=== PATIENT | male | born 1950 | race Caucasian/White ===

== ENCOUNTER 2017-01-26 18:22 | Inpatient (IN) | payer MEDICARE, OTHER ==
[2017-01-26 18:22] VITALS: BMI 35.4
[2017-01-26] MEDS ORDERED: Pantoprazole 80 MG in Sodium Chloride 0.9% 100 ML IV STA (19:01)
--- NOTE | 2017-01-26 19:18 | C.PDOC ---
History Of Present Illness A 66 year old male with a hx of arthritis and hemorrhoids, presents to the ED c/ o grossly bloody diarrhea and a near syncopal episode that occurred today. Patient notes that he has been treated by his PMD with Voltaren 75 mg for his knee pain. Patient then reports that today his "stomach was rumbling and crampy " and thought he was going to have diarrhea. When he passed his stool he noticed it to be grossly bloody. Patient then reports when he got up he felt lightheaded and had a near syncopal episode, fell, and hit his head on a cabinet. Patient denies nausea, vomiting, fever, chills, headaches, or any other complaints. Time Seen by Provider: 01/26/17 18:43 Chief Complaint (Nursing): GI Problem History Per: Patient History/Exam Limitations: no limitations Onset/Duration Of Symptoms: Hrs Current Symptoms Are (Timing): Still Present Amount of Blood Loss: Medium (Grossly bloody) Severity: Mild Associated Symptoms: Diarrhea. denies: Nausea, Vomiting Recent travel outside of the [place]: No Additional History Per: Patient Past Medical History Reviewed: Historical Data, Nursing Documentation, Vital Signs Vital Signs: Last Vital Signs Temp 97.8 F 01/26/17 18:40 Pulse 81 01/26/17 18:40 Resp 18 01/26/17 18:40 BP 99/58 L 01/26/17 18:40 Pulse Ox 99 01/26/17 20:28 - Medical History PMH: Anemia, Arthritis (Timoteo Knee), Asthma, Colonic Polyps, Diabetes, Diverticulitis (discharged 06/13/14 on antibiotics), Gastritis, HTN, Hypercholesterolemia Denies: Chronic Kidney Disease Surgical History: Endoscopy - [facility] Procedures COLONOSCOPY (06/17/14) Family History: States: Unknown Family Hx - Social History Hx Tobacco Use: No Hx Alcohol Use: No Hx Substance Use: No - Immunization History Hx Tetanus Toxoid Vaccination: No Hx Influenza Vaccination: No Hx Pneumococcal Vaccination: No Review Of Systems Except As Marked, All Systems Reviewed And Found Negative. Constitutional: Negative for: Fever, Chills Gastrointestinal: Positive for: Diarrhea. Negative for: Nausea, Vomiting Skin: Positive for: Other (Laceration on head) Neurological: Positive for: Other (Near syncopal episode). Negative for: Headache Physical Exam - Physical Exam Appears: Non-toxic, No Acute Distress Skin: Warm, Dry Head: No Tenderness, Laceration (On the top of the head) Eye(s): bilateral: Conjunctiva Pale Cardiovascular: Rhythm Regular, No Murmur Respiratory: Normal Breath Sounds, No Rales, No Rhonchi, No Wheezing Gastrointestinal/Abdominal: Soft, No Tenderness Rectal: Heme Positive (Grossly bloody around the rectal vault), No Hemorrhoids Neurological/Psych: Oriented x3, Normal Speech, Normal Cognition Gait: Steady (Ambulatory) ED Course And Treatment - Laboratory Results Result Diagrams: 01/26/17 19:28 01/26/17 19:28 Lab Interpretation: No Acute Changes ECG: Interpreted By Me ECG Rhythm: Sinus Rhythm ECG Interpretation: Normal O2 Sat by Pulse Oximetry: 99 (Room air) Pulse Ox Interpretation: Normal Reevaluation Time: 20:31 Reassessment Condition: Unchanged (Patient remains comfort able but BP 92/50. No evidence of tachycardia) - Physician Consult Information Time Consulting Physician Contacted: 20:35 Physician Contacted: Sarbjit Calhoun Outcome Of Conversation: Patient to be admitted for GI hemorrhage with syncope Procedure: Wound Repair - Time Performed Time Performed: 20:27 - Performed by Performed by: Attending Physician - Indications Indication(s):: Laceration - Location Location:: Scalp Shape:: Linear Depth:: Epidermis - Debris Debris:: None - Wound repair method Larry:: Tissue glue - Patient tolerated procedure Patient Tolerated Procedure:: Well Medical Decision Making Medical Decision Making: Plans: -IV fluids -Blood work -Pepcid -EKG -Reassess and disposition Disposition - Disposition Disposition: HOSPITALIZED Disposition Time: 20:36 Condition: GUARDED - POA Present On Arrival: Falls Or Trauma - Clinical Impression Clinical Impression: Gastrointestinal hemorrhage, Bright red blood per rectum, Syncope, Hypotension - Scribe Statement The provider has reviewed the documentation as recorded by the Scribe Lore kilgore All medical record entries made by the Scribe were at my direction and personally dictated by me. I have reviewed the chart and agree that the record accurately reflects my personal performance of the history, physical exam, medical decision making, and the department course for this patient. I have also personally directed, reviewed, and agree with the discharge instructions and disposition.
[2017-01-26 19:42] LABS: BASO % 0.4 % (0.0-2.0); EOS # 0.1 K/uL (0.0-0.7); EOS % 1.5 % (0.0-4.0); HEMATOCRIT 35.2 % (35.0-51.0); LYMPH # 0.6 K/uL (1.0-4.3); LYMPH % 7.8 % (20.0-40.0); MEAN CORPUSCULAR HEMOGLOBIN 23.4 pg (27.0-31.0); MEAN CORPUSCULAR HGB CONC 31.1 g/dL (33.0-37.0); MEAN PLATELET VOLUME 9.3 fL (7.2-11.7); MONO # 0.4 K/uL (0.0-0.8); MONO % 5.9 % (0.0-10.0); NRBC % 0.1 % (0.0-2.0); PLATELET COUNT 179 K/uL (130-400); WHITE BLOOD COUNT 7.3 K/uL (4.8-10.8)
[2017-01-26 19:43] LABS: CHLORIDE 104 mmol/L (98-107)
[2017-01-26 19:44] LABS: MEAN CELL VOLUME 75.4 fL (80.0-94.0); POTASSIUM 3.4 mmol/L (3.6-5.2); SODIUM 142 mmol/L (132-148)
[2017-01-26 19:46] LABS: ALB/GLOB RATIO 1.4 (1.0-2.1); ALKALINE PHOSPHATASE 44 U/L (38-126); AST/SGOT 32 U/L (17-59); BILIRUBIN,TOTAL 0.6 mg/dL (0.2-1.3); CARBON DIOXIDE 27 mmol/L (22-30); GFR AFRICAN-AMERICAN > 60; INR 1.1; TOTAL PROTEIN 6.1 g/dL (6.3-8.3)
[2017-01-26 19:47] LABS: ALT/SGPT 33 U/L (21-72); BLOOD UREA NITROGEN 19 mg/dL (9-20); CALCIUM 8.4 mg/dl (8.6-10.4); GLUCOSE,RANDOM 166 mg/dL (75-110)
[2017-01-26 20:18] LABS: NEUTROPHIL 89 % (50-75); TOTAL CELLS COUNTED 100
[2017-01-26 20:19] LABS: LARGE PLATELETS PRESENT
[2017-01-26] MEDS ORDERED: Sodium Chloride 0.9% 1,000 ML IV ONE (20:30)
--- NOTE | 2017-01-26 20:55 | CP.PCM.HP ---
Addendum entered and electronically signed by Randy Boogie DO 01/27/17 02:21: -CT Abd/Pelvis w/o contrast - 1. Bladder findings which could be due to mild cystitis. Otherwise within normal limits in appearance. 2. Extensive colonic diverticulosis without definite diverticulitis (artifacts from arm movement). -f/u UA Original Note: <Randy Boogie - Last Filed: 01/27/17 00:20> History of Present Illness - History of Present Illness History of Present Illness: CC: Diarrhea with bright red blood HPI: 66yo Male with PMHx significant for diverticulitis, internal-hemorrhoids, and HTN - presents c/o a single episode of bloody diarrhea and a near syncopal episode earlier today. Patient reports eating a typical lunch of grilled chicken , plantains, 2 eggs, and coffee. Shortly after, he developed cramping abdominal discomfort for several hours, which culminated in an episode of diarrhea at 4: 30pm. He describes the diarrhea as bloody (bright red), coating both the small pieces of stool and the toilet bowl, with black clots present. Upon standing, he reports feeling lightheaded, had a near syncopal episode, fell, and hit his head on a cabinet. He denies LOC, change in vision, headache, f/c, chest pain, SOB, n/v, or any additional complaints. He admits to similar episodes of BRBPR with clots in 2013. PMHx: HTN, DM2, colonic polyps, diverticulitis, internal-hemorrhoids, hyperlipidemia, arthritis (knee pain). PSHx: Colonoscopy 11/2015 (diverticulosis, non-bleeding internal hemorhoids, rec repeat in 10yrs), Cataracts Meds: Glimepiride 4mg PO qd; Singulair 10mg PO qd; Diclofenac 74mg PO BID; Pravastatin 20mg PO HS; Verapamil 240mg PO qd; Alendronate 35mg PO qd; Protonic 40mg PO qd. Allergies: NKDA FamHx: Mother DM; Father of [place] SocHx: Denies Tobacco, ETOH, or illicit drugs; Lives in apartment alone; Unemployed PMD: Pravin Pepe Present on Admission - Present on Admission Any Indicators Present on Admission: No Review of Systems - Review of Systems Review of Systems: - Constitutional Constitutional: absent: Fever, Chills, Weakness - EENT Eyes: UNREMARKABLE absent: Change in vision. Ears: Dizziness Nose/Mouth/Throat: UNREMARKABLE - Cardiovascular Cardiovascular: absent: Chest Pain, Chest Pain at Rest, Dyspnea, Diaphoresis - Respiratory Respiratory: absent: Cough, Dyspnea - Gastrointestinal Gastrointestinal: Abdominal Pain (5/5 LLQ), Change in Bowel Habits, Change in Stool Character, Diarrhea, Hematochezia. absent: Hematemesis, Nausea, Vomiting - Genitourinary Genitourinary: absent: Dysuria, Hematuria - Musculoskeletal Musculoskeletal: UNREMARKABLE - Integumentary Integumentary: UNREMARKABLE - Neurological Neurological: Syncope, Alert, Oriented x3 -Denies change in vision Past Patient History - Infectious Disease Hx of Infectious Diseases: None - Tetanus Immunizations Tetanus Immunization: Unknown - Past Medical History & Family History Past Medical History?: Yes - Past Social History Smoking Status: Never Smoked - CARDIAC Hx Hypercholesterolemia: Yes Hx Hypertension: Yes - PULMONARY Hx Asthma: Yes - NEUROLOGICAL Hx Neurological Disorder: Yes Hx Dizziness: Yes (06/11/14) - HEENT Hx HEENT Problems: Yes Hx Cataracts: Yes (L Cataract Surgery 15 Yrs Ago) - RENAL Hx Chronic Kidney Disease: No - ENDOCRINE/METABOLIC Hx Endocrine Disorders: Yes Hx Diabetes Mellitus Type 2: Yes - HEMATOLOGICAL/ONCOLOGICAL Hx Anemia: Yes - INTEGUMENTARY Hx Dermatological Problems: No - MUSCULOSKELETAL/RHEUMATOLOGICAL Hx Arthritis: Yes (Timoteo Knee) - GASTROINTESTINAL Hx Diverticulitis: Yes (discharged 06/13/14 on antibiotics) Hx Gastritis: Yes - GENITOURINARY/GYNECOLOGICAL Hx Genitourinary Disorders: No - PSYCHIATRIC Hx Substance Use: No - SURGICAL HISTORY Hx Surgeries: Yes Hx Eye Surgery: Yes (CATARACTS SX) Other/Comment: Colonoscopy/Endoscopy By ,left cataract surgery - ANESTHESIA Hx Anesthesia: Yes Hx Anesthesia Reactions: No Hx Malignant Hyperthermia: No Meds Allergies/Adverse Reactions: Allergies Allergy/AdvReac Type Severity Reaction Status Date / Time No Known Allergies Allergy Verified 01/26/17 18:44 Physical Exam - Additional Findings Additional findings: - Constitutional Appears: No Acute Distress - Head Exam Head Exam: absent: Atraumatic (right posterior scalp laceration, sealed with epoxy). - Eye Exam Eye Exam: Normal appearance - ENT Exam ENT Exam: Mucous Membranes Moist - Respiratory Exam Respiratory Exam: CTA. absent: Rales, Rhonchi, Wheezes - Cardiovascular Exam Cardiovascular Exam: REGULAR RHYTHM, +S1, +S2 - GI/Abdominal Exam GI & Abdominal Exam: Normal Bowel Sounds, Soft. Tenderness (moderate LLQ) absent: Distended, Guarding, Rebound Additional comments: -obese abdomen -blood around rectal vault. No external hemorrhoids appreciated. - Extremities Exam Extremities exam: absent: pedal edema - Neurological Exam Neurological exam: Alert, Oriented x3 - Psychiatric Exam Psychiatric exam: Normal Affect, Normal Mood Results - Vital Signs Recent Vital Signs: Last Vital Signs Temp 97.8 F 01/26/17 18:40 Pulse 81 01/26/17 18:40 Resp 18 01/26/17 18:40 BP 99/58 L 01/26/17 18:40 Pulse Ox 99 01/26/17 20:37 - Labs Result Diagrams: 01/26/17 19:28 01/26/17 19:28 Labs: Laboratory Results - last 24 hr 01/26/17 01/26/17 01/26/17 19:15 19:28 19:28 WBC 7.3 RBC 4.67 Hgb 11.0 L Hct 35.2 MCV 75.4 L D MCH 23.4 L MCHC 31.1 L RDW 15.0 H Plt Count 179 MPV 9.3 Neut % (Auto) 84.4 H Lymph % (Auto) 7.8 L [place] % (Auto) 5.9 Eos % (Auto) 1.5 Baso % (Auto) 0.4 Neut # 6.2 Lymph # 0.6 L [place] # 0.4 Eos # 0.1 Baso # 0.0 Neutrophils % (Manual) 89 H Lymphocytes % (Manual) 7 L Monocytes % (Manual) 4 Platelet Estimate Normal Large Platelets Present Hypochromasia (manual) Slight Poikilocytosis (manual Slight Anisocytosis (manual) Slight Microcytosis (manual) Slight Tear Drop Cells Slight Ovalocytes Slight PT 12.8 H INR 1.1 APTT 25 Sodium Potassium Chloride Carbon Dioxide Anion Gap BUN Creatinine Est GFR ( Amer) Est GFR (Non-Af Amer) Random Glucose Calcium Total Bilirubin AST ALT Alkaline Phosphatase Total Protein Albumin Globulin Albumin/Globulin Ratio Stool Occult Blood Positive H Blood Type 01/26/17 01/26/17 19:28 19:28 WBC RBC Hgb Hct MCV MCH MCHC RDW Plt Count MPV Neut % (Auto) Lymph % (Auto) [place] % (Auto) Eos % (Auto) Baso % (Auto) Neut # Lymph # [place] # Eos # Baso # Neutrophils % (Manual) Lymphocytes % (Manual) Monocytes % (Manual) Platelet Estimate Large Platelets Hypochromasia (manual) Poikilocytosis (manual Anisocytosis (manual) Microcytosis (manual) Tear Drop Cells Ovalocytes PT INR APTT Sodium 142 Potassium 3.4 L Chloride 104 Carbon Dioxide 27 Anion Gap 14 BUN 19 Creatinine 0.6 L Est GFR ( Amer) > 60 Est GFR (Non-Af Amer) > 60 Random Glucose 166 H Calcium 8.4 L Total Bilirubin 0.6 AST 32 ALT 33 Alkaline Phosphatase 44 Total Protein 6.1 L Albumin 3.5 Globulin 2.5 Albumin/Globulin Ratio 1.4 Stool Occult Blood Blood Type A POSITIVE Assessment & Plan - Assessment and Plan (Free Text) Assessment: Gastrointestinal hemorrhage -BRBPR during 1 diarrheal episode prior to admission. - Hgb 11; Hct 35.2; MCV 75L -Type and cross 2 units -Consult GI, Dr. Varela, f/u recs -> possible endoscopy / colonoscopy in AM -Pantoprazol 80mg IV (in ED). -Protonix drip at 8cc/hr -Stool occult (+) Anemia - Hgb 11; Hct 35.2; MCV 75L -Type and cross 2 units -Vitals: Stable -F/U cbc in am -Stool occult (+) -f/u Fe, TIBC, %Sat, reticulocyte count, folate, B12 Hx Diverticulitis -Consult GI, Dr. Varela, f/u recs -> possible endoscopy / colonoscopy in AM -WBC 7.3 Scalp Laceration - at posterior/right scalp -> closed with dermabond in ED. -CT head w/o contrast - NEGATIVE. Normal CT of the brain. Other findings: 1. Focal area of the sclerosis and cystic change of the left sphenoid bone at the level of the floor the middle cranial fossa. Fibrous dysplasia is among the diagnostic considerations. MRI might be helpful. 2. Mucosal thickening in the ethmoid air cells bilaterally. Hypertension - BP 99/58 on admission - Hold Verapamil 240mg PO qd - NS0.9 at 80cc/hr Diabetes mellitus -Accuchecks -RISS -HOLD Glimepiride 4mg PO qd -f/u A1c (6.1 in 2014) Hyperlipidemia -Crestor 5 mg PO QHS -f/u FLP Arthritis - b/l knee pain - HOLD Diclofenac 74mg PO BID Hx Asthma - asymptomatic - Singulair 10mg PO qd - consider Duonebs if needed. Prophylactic measure -Protonix drip at 8cc/hr -Hold anticoagulation due to bleed -SCDs - Date & Time Date: 01/26/17 Time: 21:20 <Sarbjit Calhoun - Last Filed: 01/27/17 06:31> Results - Vital Signs Recent Vital Signs: Last Vital Signs Temp 97.8 F 01/26/17 18:40 Pulse 59 L 01/27/17 05:55 Resp 13 01/27/17 05:55 BP 125/74 01/27/17 05:55 Pulse Ox 100 01/27/17 05:55 - Labs Result Diagrams: 01/27/17 05:57 01/27/17 05:57 Labs: Laboratory Results - last 24 hr 01/27/17 01/27/17 01/27/17 00:18 05:57 05:57 WBC 5.6 5.0 RBC 4.31 L 3.82 L Hgb 10.1 L 8.7 L Hct 31.7 L 28.1 L MCV 73.6 L 73.6 L MCH 23.4 L 22.8 L MCHC 31.9 L 31.0 L RDW 15.2 H 15.1 H Plt Count 158 151 MPV 9.2 9.2 Neut % (Auto) 77.3 H 72.4 Lymph % (Auto) 13.0 L 15.0 L [place] % (Auto) 8.4 9.7 Eos % (Auto) 0.7 2.2 Baso % (Auto) 0.6 0.7 Neut # 4.4 3.6 Lymph # 0.7 L 0.7 L [place] # 0.5 0.5 Eos # 0.0 0.1 Baso # 0.0 0.0 Retic Count Sodium 142 Potassium 3.7 Chloride 107 Carbon Dioxide 27 Anion Gap 12 BUN 12 Creatinine 0.5 L Est GFR ( Amer) > 60 Est GFR (Non-Af Amer) > 60 Random Glucose 75 Calcium 7.9 L Phosphorus 2.1 L Magnesium 2.0 Total Bilirubin 0.6 AST 27 ALT 30 Alkaline Phosphatase 41 Total Protein 5.2 L Albumin 2.9 L Globulin 2.3 Albumin/Globulin Ratio 1.3 Triglycerides 41 Cholesterol 118 HDL Cholesterol 43 01/27/17 05:57 WBC RBC Hgb Hct MCV MCH MCHC RDW Plt Count MPV Neut % (Auto) Lymph % (Auto) [place] % (Auto) Eos % (Auto) Baso % (Auto) Neut # Lymph # [place] # Eos # Baso # Retic Count 0.7 Sodium Potassium Chloride Carbon Dioxide Anion Gap BUN Creatinine Est GFR ( Amer) Est GFR (Non-Af Amer) Random Glucose Calcium Phosphorus Magnesium Total Bilirubin AST ALT Alkaline Phosphatase Total Protein Albumin Globulin Albumin/Globulin Ratio Triglycerides Cholesterol HDL Cholesterol Assessment & Plan - Date & Time Date: 01/27/17 (I have seen and examined the patient. I agree with the findings and plan of care as documented by Dr. Boogie. Patient with GI bleed. Also with anemia. History of diverticulitis. Check CT abdomen/pelvis. Protonix IV. GI consult. Iron studies. S/P fall, pre syncopal episode. Denies LOC. CT head negative. Monitor for acute changes.) Time: 06:29 Attending/Attestation - Attestation I have personally seen and examined this patient.: Yes I have fully participated in the care of the patient.: Yes I have reviewed all pertinent clinical information: Yes
--- NOTE | 2017-01-26 21:29 | CT ---
EXAM: CT Head Without Intravenous Contrast CLINICAL HISTORY: 66 years old, male; Signs and symptoms; Syncope and collapse; Additional info: Syncope with head injury TECHNIQUE: Axial computed tomography images of the head/brain without intravenous contrast. This CT exam was performed using one or more of the following dose reduction techniques: automated exposure control, adjustment of the mA and/or kV according to patient size, and/or use of iterative reconstruction technique. EXAM DATE/TIME: Exam ordered 01/26/2017 8:34 PM COMPARISON: No relevant prior studies available. FINDINGS: Brain: There is a focal abnormality noted with sphenoid bone forming the floor of the middle cranial fossa on the left. The bone has a somewhat mottled cystic appearance. There is no periosteal new bone formation noted. No calcified matrix is noted. No hemorrhage. No significant white matter disease. No edema. Ventricles: Unremarkable. No ventriculomegaly. Bones/joints: See above. Soft tissues: Unremarkable. Sinuses: Mucosal thickening is noted in the ethmoid air cells bilaterally. Mastoid air cells: Unremarkable as visualized. No mastoid effusion. IMPRESSION: 1. Normal CT of the brain. 2. Focal area of the sclerosis and cystic change of the left sphenoid bone at the level of the floor the middle cranial fossa. Fibrous dysplasia is among the diagnostic considerations. MRI might be helpful. 3. Mucosal thickening in the ethmoid air cells bilaterally Images were attached to this report and are available at [email or web address]
[2017-01-27 00:21] LABS: BASO % 0.6 % (0.0-2.0); EOS % 0.7 % (0.0-4.0); HEMATOCRIT 31.7 % (35.0-51.0); LYMPH # 0.7 K/uL (1.0-4.3); MEAN CELL VOLUME 73.6 fL (80.0-94.0); MEAN CORPUSCULAR HEMOGLOBIN 23.4 pg (27.0-31.0); MEAN CORPUSCULAR HGB CONC 31.9 g/dL (33.0-37.0); MEAN PLATELET VOLUME 9.2 fL (7.2-11.7); MONO # 0.5 K/uL (0.0-0.8); MONO % 8.4 % (0.0-10.0); RED CELL DISTRIBUTION WIDTH 15.2 % (11.5-14.5); WHITE BLOOD COUNT 5.6 K/uL (4.8-10.8)
--- NOTE | 2017-01-27 01:04 | CT ---
EXAM: CT Abdomen and Pelvis Without Intravenous Contrast CLINICAL HISTORY: 66 years old, male; Signs and symptoms; Other: Rectal bleeding; Additional info: Abdominal pain, hematochezia TECHNIQUE: Axial computed tomography images of the abdomen and pelvis without intravenous contrast. This CT exam was performed using one or more of the following dose reduction techniques: automated exposure control, adjustment of the mA and/or kV according to patient size, and/or use of iterative reconstruction technique. Coronal and sagittal reformatted images were created and reviewed. EXAM DATE/TIME: 01/26/2017 11:10 PM COMPARISON: No relevant prior studies available. FINDINGS: LIMITATIONS: Exam is somewhat limited by mild streak/motion artifact and by streak artifact from the patient's arms. LOWER THORAX: Cystic probable emphysematous changes in the right lung base. No infiltrate seen in the lung bases. ABDOMEN: LIVER: No acute abnormality of the liver identified. GALLBLADDER AND BILE DUCTS: No CT evidence of acute cholecystitis. No evidence of significant biliary ductal dilatation. PANCREAS: No CT evidence of acute pancreatitis. SPLEEN: No acute abnormality of the spleen identified. ADRENALS: No acute abnormality of the adrenal glands identified. KIDNEYS AND URETERS: Tiny, nonobstructing left renal stone. Bilateral perinephric stranding, a nonspecific finding. No acute abnormality of the kidneys identified. STOMACH AND BOWEL: Extensive colonic diverticulosis, with no evidence of acute diverticulitis, allowing for motion artifact. Otherwise, no significant abnormality of the bowel is identified. No evidence of diffuse colitis/pancolitis. No evidence of large bowel obstruction. No acute abnormality of the stomach or duodenum identified. No evidence of small bowel obstruction. APPENDIX: Appendix is seen, and is within normal limits in appearance. Negative. PELVIS: BLADDER: Mild infiltration of the fat around the bladder is noted. Bladder wall appears mildly thickened. Findings could be signs of mild cystitis. REPRODUCTIVE: No acute abnormality of the reproductive organs is seen. ABDOMEN and PELVIS: INTRAPERITONEAL SPACE:No evidence of free intraperitoneal air or fluid. BONES/JOINTS: No acute fractures or other acute bony abnormality noted. SOFT TISSUES: Mild, diffuse subcutaneous edema/anasarca. VASCULATURE: No evidence of abdominal aortic aneurysm. No evidence of periaortic hemorrhage. LYMPH NODES: No evidence of diffuse lymphadenopathy. IMPRESSION: - Bladder findings which could be due to mild cystitis. Recommend correlation with urinalysis results. - Otherwise within normal limits in appearance. - Extensive colonic diverticulosis without definite diverticulitis - See above for remaining findings.
[2017-01-27] MEDS: Pantoprazole 80 MG in Sodium Chloride 0.9% 100 ML IVP SCH ×3 (03:56→20:20)
[2017-01-27] MEDS: Sodium Chloride 0.9% 1,000 ML IV SCH ×3 (03:59→23:51)
[2017-01-27 06:01] LABS: BASO % 0.7 % (0.0-2.0); EOS # 0.1 K/uL (0.0-0.7); EOS % 2.2 % (0.0-4.0); HEMATOCRIT 28.1 % (35.0-51.0); LYMPH # 0.7 K/uL (1.0-4.3); MEAN CELL VOLUME 73.6 fL (80.0-94.0); MEAN CORPUSCULAR HEMOGLOBIN 22.8 pg (27.0-31.0); MEAN PLATELET VOLUME 9.2 fL (7.2-11.7); MONO # 0.5 K/uL (0.0-0.8); MONO % 9.7 % (0.0-10.0); RED CELL DISTRIBUTION WIDTH 15.1 % (11.5-14.5)
[2017-01-27 06:15] LABS: CHLORIDE 107 mmol/L (98-107); SODIUM 142 mmol/L (132-148)
[2017-01-27 06:16] LABS: POTASSIUM 3.7 mmol/L (3.6-5.2)
[2017-01-27 06:17] LABS: CHOLESTEROL 118 mg/dL (0-199)
[2017-01-27 06:18] LABS: ALB/GLOB RATIO 1.3 (1.0-2.1); ALKALINE PHOSPHATASE 41 U/L (38-126); ALT/SGPT 30 U/L (21-72); AST/SGOT 27 U/L (17-59); BILIRUBIN,TOTAL 0.6 mg/dL (0.2-1.3); BLOOD UREA NITROGEN 12 mg/dL (9-20); CARBON DIOXIDE 27 mmol/L (22-30); GFR AFRICAN-AMERICAN > 60; GLUCOSE,RANDOM 75 mg/dL (75-110); TOTAL PROTEIN 5.2 g/dL (6.3-8.3)
[2017-01-27 06:19] LABS: CALCIUM 7.9 mg/dl (8.6-10.4); PHOSPHOROUS 2.1 mg/dL (2.5-4.5)
[2017-01-27 07:24] LABS: FOLATE > 20.0 ng/mL
[2017-01-27] MEDS: (Novolog) Insulin Aspart, Recombinant 100 u/ml 10 ml vial SC SCH ×4 (08:45→22:00)
--- NOTE | 2017-01-27 11:18 | CP.PCM.CON ---
Past Patient History - Infectious Disease Hx of Infectious Diseases: None - Tetanus Immunizations Tetanus Immunization: Unknown - Past Medical History & Family History Past Medical History?: Yes - Past Social History Smoking Status: Never Smoked - CARDIAC Hx Hypercholesterolemia: Yes Hx Hypertension: Yes - PULMONARY Hx Asthma: Yes - NEUROLOGICAL Hx Neurological Disorder: Yes Hx Dizziness: Yes (06/11/14) - HEENT Hx HEENT Problems: Yes Hx Cataracts: Yes (L Cataract Surgery 15 Yrs Ago) - RENAL Hx Chronic Kidney Disease: No - ENDOCRINE/METABOLIC Hx Endocrine Disorders: Yes Hx Diabetes Mellitus Type 2: Yes - HEMATOLOGICAL/ONCOLOGICAL Hx Anemia: Yes - INTEGUMENTARY Hx Dermatological Problems: No - MUSCULOSKELETAL/RHEUMATOLOGICAL Hx Arthritis: Yes (Timoteo Knee) - GASTROINTESTINAL Hx Diverticulitis: Yes (discharged 06/13/14 on antibiotics) Hx Gastritis: Yes - GENITOURINARY/GYNECOLOGICAL Hx Genitourinary Disorders: No - PSYCHIATRIC Hx Substance Use: No - SURGICAL HISTORY Hx Surgeries: Yes Hx Eye Surgery: Yes (CATARACTS SX) Other/Comment: Colonoscopy/Endoscopy By ,left cataract surgery - ANESTHESIA Hx Anesthesia: Yes Hx Anesthesia Reactions: No Hx Malignant Hyperthermia: No Meds Allergies/Adverse Reactions: Allergies Allergy/AdvReac Type Severity Reaction Status Date / Time No Known Allergies Allergy Verified 01/26/17 18:44 - Medications Medications: Current Medications Bisacodyl (Dulcolax) 10 mg PO ONCE ONE Stop: 01/27/17 17:01 Pantoprazole Sodium 80 mg/ (Sodium Chloride) 100 mls @ 10 mls/hr IVP .Q10H [facility] PRN Reason: 8 MG/HR Last Admin: 01/27/17 03:56 Dose: 10 mls/hr Sodium Chloride (Sodium Chloride 0.9%) 1,000 mls @ 80 mls/hr IV .[id number] [facility] Last Admin: 01/27/17 03:59 Dose: 80 mls/hr Insulin Aspart (Novolog) 0 unit SC ACHS [facility] PRN Reason: Protocol Last Admin: 01/27/17 08:45 Dose: Not Given Montelukast Sodium (Singulair) 10 mg PO HS [facility] Polyethylene Glycol/Electrolytes (Golytely) 2,000 ml PO ONCE ONE Stop: 01/27/17 18:01 Polyethylene Glycol/Electrolytes (Golytely) 2,000 ml PO ONCE ONE Stop: 01/28/17 06:01 Potassium Chloride (K-Dur 20 Meq Er Tab) 40 meq PO ONCE ONE Stop: 01/27/17 23:39 Rosuvastatin Calcium (Crestor) 5 mg PO HS [facility] Last Admin: 01/27/17 03:56 Dose: 5 mg Results - Vital Signs Recent Vital Signs: Last Vital Signs Temp 97.8 F 01/26/17 18:40 Pulse 59 L 01/27/17 05:55 Resp 13 01/27/17 05:55 BP 125/74 01/27/17 05:55 Pulse Ox 100 01/27/17 05:55 - Labs Result Diagrams: 01/27/17 05:57 01/27/17 05:57 Labs: Laboratory Results - last 24 hr 01/27/17 01/27/17 01/27/17 00:18 05:57 05:57 WBC 5.6 5.0 RBC 4.31 L 3.82 L Hgb 10.1 L 8.7 L Hct 31.7 L 28.1 L MCV 73.6 L 73.6 L MCH 23.4 L 22.8 L MCHC 31.9 L 31.0 L RDW 15.2 H 15.1 H Plt Count 158 151 MPV 9.2 9.2 Neut % (Auto) 77.3 H 72.4 Lymph % (Auto) 13.0 L 15.0 L [place] % (Auto) 8.4 9.7 Eos % (Auto) 0.7 2.2 Baso % (Auto) 0.6 0.7 Neut # 4.4 3.6 Lymph # 0.7 L 0.7 L [place] # 0.5 0.5 Eos # 0.0 0.1 Baso # 0.0 0.0 Retic Count Sodium 142 Potassium 3.7 Chloride 107 Carbon Dioxide 27 Anion Gap 12 BUN 12 Creatinine 0.5 L Est GFR ( Amer) > 60 Est GFR (Non-Af Amer) > 60 POC Glucose (mg/dL) Random Glucose 75 Hemoglobin A1c Calcium 7.9 L Phosphorus 2.1 L Magnesium 2.0 % Saturation Total Bilirubin 0.6 AST 27 ALT 30 Alkaline Phosphatase 41 Total Protein 5.2 L Albumin 2.9 L Globulin 2.3 Albumin/Globulin Ratio 1.3 Triglycerides 41 Cholesterol 118 LDL Cholesterol Direct 63 HDL Cholesterol 43 Vitamin B12 526 Folate > 20.0 0501/27/17 01/27/17 05:57 05:57 05:57 WBC RBC Hgb Hct MCV MCH MCHC RDW Plt Count MPV Neut % (Auto) Lymph % (Auto) [place] % (Auto) Eos % (Auto) Baso % (Auto) Neut # Lymph # [place] # Eos # Baso # Retic Count 0.7 Sodium Potassium Chloride Carbon Dioxide Anion Gap BUN Creatinine Est GFR ( Amer) Est GFR (Non-Af Amer) POC Glucose (mg/dL) Random Glucose Hemoglobin A1c 5.5 Calcium Phosphorus Magnesium % Saturation 41 Total Bilirubin AST ALT Alkaline Phosphatase Total Protein Albumin Globulin Albumin/Globulin Ratio Triglycerides Cholesterol LDL Cholesterol Direct HDL Cholesterol Vitamin B12 Folate 01/27/17 07:52 WBC RBC Hgb Hct MCV MCH MCHC RDW Plt Count MPV Neut % (Auto) Lymph % (Auto) [place] % (Auto) Eos % (Auto) Baso % (Auto) Neut # Lymph # [place] # Eos # Baso # Retic Count Sodium Potassium Chloride Carbon Dioxide Anion Gap BUN Creatinine Est GFR ( Amer) Est GFR (Non-Af Amer) POC Glucose (mg/dL) 92 Random Glucose Hemoglobin A1c Calcium Phosphorus Magnesium % Saturation Total Bilirubin AST ALT Alkaline Phosphatase Total Protein Albumin Globulin Albumin/Globulin Ratio Triglycerides Cholesterol LDL Cholesterol Direct HDL Cholesterol Vitamin B12 Folate
--- NOTE | 2017-01-27 16:30 | CP.PCM.CON ---
History of Present Illness - History of Present Illness History of Present Illness: 66 yo male well known to me with PMHx significant for diverticular disease, internal-hemorrhoids, and HTN - presents c/o a single episode of bloody diarrhea and a near syncopal episode earlier today. Patient reports eating lunch followed by developing cramping abdominal discomfort for several hours, which culminated in an episode of diarrhea at 4:30pm. He describes the diarrhea as bloody (bright red), coating both the small pieces of stool and the toilet bowl, with black clots present. Upon standing, he reports feeling lightheaded, had a near syncopal episode, fell, and hit his head on a cabinet resulting in a laceration to his head. He denies CP, LOC, change in vision, headache, fever, chills, SOB, n/v, or any additional complaints. He admits to similar episodes of BRBPR with clots in 2013. Patient has had EGD and colonoscopy within the past two years that was unremarkable except for gastritis, gerd, diverticular disease and hemrrhoids. Had one episode since admission in the ED with drop in hgb to 8.7. Transfusion has been ordered by primary care team. Review of Systems - Cardiovascular Cardiovascular: Lightheadedness. absent: Chest Pain, Chest Pain with Activity, Dyspnea, Edema - Respiratory Respiratory: absent: Cough, Hemoptysis - Gastrointestinal Gastrointestinal: As Per HPI Past Patient History - Infectious Disease Hx of Infectious Diseases: None - Tetanus Immunizations Tetanus Immunization: Unknown - Past Medical History & Family History Past Medical History?: Yes - Past Social History Smoking Status: Never Smoked Alcohol: None Drugs: Denies - CARDIAC Hx Hypercholesterolemia: Yes Hx Hypertension: Yes - PULMONARY Hx Asthma: Yes - NEUROLOGICAL Hx Neurological Disorder: Yes Hx Dizziness: Yes (06/11/14) - HEENT Hx HEENT Problems: Yes Hx Cataracts: Yes (L Cataract Surgery 15 Yrs Ago) - RENAL Hx Chronic Kidney Disease: No - ENDOCRINE/METABOLIC Hx Endocrine Disorders: Yes Hx Diabetes Mellitus Type 2: Yes - HEMATOLOGICAL/ONCOLOGICAL Hx Anemia: Yes Hx Cirrhosis: No Hx Hepatitis A: No Hx Hepatitis B: No Hx Hepatitis C: No Hx Human Immunodeficiency Virus (HIV): No - INTEGUMENTARY Hx Dermatological Problems: No - MUSCULOSKELETAL/RHEUMATOLOGICAL Hx Arthritis: Yes (Timoteo Knee) - GASTROINTESTINAL Hx Gastrointestinal Disorders: Yes Hx Bowel Surgery: No Hx Clostridium Difficile: No Hx Colitis: No Hx Colostomy: No Hx Constipation: No Hx Crohn's Disease: No Hx Diarrhea: No Hx Diverticulitis: Yes (discharged 06/13/14 on antibiotics) Hx Esophageal Varices: No Hx Fatty Liver Disease: No Hx Gall Bladder Disease: No Hx Gastritis: Yes Hx Gastroesophageal Reflux: Yes Hx Hemorrhoids: Yes Hx Ileostomy: No Hx Irritable Bowel: No Hx Liver Failure: No Hx Nausea: No Hx Pancreatitis: No HX Swallowing Problems: No Hx Ulcer: No Hx Vomiting: No - GENITOURINARY/GYNECOLOGICAL Hx Genitourinary Disorders: No - PSYCHIATRIC Hx Substance Use: No - SURGICAL HISTORY Hx Surgeries: Yes Hx Eye Surgery: Yes (CATARACTS SX) Other/Comment: Colonoscopy/Endoscopy By ,left cataract surgery - ANESTHESIA Hx Anesthesia: Yes Hx Anesthesia Reactions: No Hx Malignant Hyperthermia: No Meds Allergies/Adverse Reactions: Allergies Allergy/AdvReac Type Severity Reaction Status Date / Time No Known Allergies Allergy Verified 01/26/17 18:44 - Medications Medications: Current Medications Bisacodyl (Dulcolax) 10 mg PO ONCE ONE Stop: 01/27/17 17:01 Pantoprazole Sodium 80 mg/ (Sodium Chloride) 100 mls @ 10 mls/hr IVP .Q10H [facility] PRN Reason: 8 MG/HR Last Admin: 01/27/17 11:55 Dose: 10 mls/hr Sodium Chloride (Sodium Chloride 0.9%) 1,000 mls @ 80 mls/hr IV .[id number] [facility] Last Admin: 01/27/17 13:48 Dose: Not Given Insulin Aspart (Novolog) 0 unit SC ACHS [facility] PRN Reason: Protocol Last Admin: 01/27/17 13:02 Dose: Not Given Montelukast Sodium (Singulair) 10 mg PO [facility] Polyethylene Glycol/Electrolytes (Golytely) 2,000 ml PO ONCE ONE Stop: 01/27/17 18:01 Polyethylene Glycol/Electrolytes (Golytely) 2,000 ml PO ONCE ONE Stop: 01/28/17 06:01 Potassium Chloride (K-Dur 20 Meq Er Tab) 40 meq PO ONCE ONE Stop: 01/27/17 23:39 Rosuvastatin Calcium (Crestor) 5 mg PO [facility] Last Admin: 01/27/17 03:56 Dose: 5 mg Physical Exam - Constitutional Appears: No Acute Distress - Head Exam Head Exam: ATRAUMATIC, NORMOCEPHALIC - Eye Exam Eye Exam: EOMI, PERRL - Respiratory Exam Respiratory Exam: NORMAL BREATHING PATTERN - Cardiovascular Exam Cardiovascular Exam: REGULAR RHYTHM - GI/Abdominal Exam GI & Abdominal Exam: Hyperactive Bowel Sounds, Normal Bowel Sounds, Soft. absent: Distended, Mass, Rigid, Tenderness - Rectal Exam Rectal Exam: Bloody Stool - Extremities Exam Extremities exam: Positive for: normal inspection. Negative for: pedal edema - Neurological Exam Neurological exam: Alert, Oriented x3 - Psychiatric Exam Psychiatric exam: Normal Affect, Normal Mood Results - Vital Signs Recent Vital Signs: Last Vital Signs Temp 97.9 F 01/27/17 14:41 Pulse 73 01/27/17 14:41 Resp 16 01/27/17 14:41 BP 111/69 01/27/17 14:41 Pulse Ox 99 01/27/17 14:41 - Labs Result Diagrams: 01/27/17 05:57 01/27/17 05:57 Labs: Laboratory Results - last 24 hr 01/27/17 01/27/17 01/27/17 00:18 05:57 05:57 WBC 5.6 5.0 RBC 4.31 L 3.82 L Hgb 10.1 L 8.7 L Hct 31.7 L 28.1 L MCV 73.6 L 73.6 L MCH 23.4 L 22.8 L MCHC 31.9 L 31.0 L RDW 15.2 H 15.1 H Plt Count 158 151 MPV 9.2 9.2 Neut % (Auto) 77.3 H 72.4 Lymph % (Auto) 13.0 L 15.0 L [place] % (Auto) 8.4 9.7 Eos % (Auto) 0.7 2.2 Baso % (Auto) 0.6 0.7 Neut # 4.4 3.6 Lymph # 0.7 L 0.7 L [place] # 0.5 0.5 Eos # 0.0 0.1 Baso # 0.0 0.0 Retic Count Sodium 142 Potassium 3.7 Chloride 107 Carbon Dioxide 27 Anion Gap 12 BUN 12 Creatinine 0.5 L Est GFR ( Amer) > 60 Est GFR (Non-Af Amer) > 60 POC Glucose (mg/dL) Random Glucose 75 Hemoglobin A1c Calcium 7.9 L Phosphorus 2.1 L Magnesium 2.0 % Saturation Total Bilirubin 0.6 AST 27 ALT 30 Alkaline Phosphatase 41 Total Protein 5.2 L Albumin 2.9 L Globulin 2.3 Albumin/Globulin Ratio 1.3 Triglycerides 41 Cholesterol 118 LDL Cholesterol Direct 63 HDL Cholesterol 43 Vitamin B12 526 Folate > 20.0 01/27/17 01/27/17 01/27/17 05:57 05:57 05:57 WBC RBC Hgb Hct MCV MCH MCHC RDW Plt Count MPV Neut % (Auto) Lymph % (Auto) [place] % (Auto) Eos % (Auto) Baso % (Auto) Neut # Lymph # [place] # Eos # Baso # Retic Count 0.7 Sodium Potassium Chloride Carbon Dioxide Anion Gap BUN Creatinine Est GFR ( Amer) Est GFR (Non-Af Amer) POC Glucose (mg/dL) Random Glucose Hemoglobin A1c 5.5 Calcium Phosphorus Magnesium % Saturation 41 Total Bilirubin AST ALT Alkaline Phosphatase Total Protein Albumin Globulin Albumin/Globulin Ratio Triglycerides Cholesterol LDL Cholesterol Direct HDL Cholesterol Vitamin B12 Folate 01/27/17 01/27/17 07:52 12:32 WBC RBC Hgb Hct MCV MCH MCHC RDW Plt Count MPV Neut % (Auto) Lymph % (Auto) [place] % (Auto) Eos % (Auto) Baso % (Auto) Neut # Lymph # [place] # Eos # Baso # Retic Count Sodium Potassium Chloride Carbon Dioxide Anion Gap BUN Creatinine Est GFR ( Amer) Est GFR (Non-Af Amer) POC Glucose (mg/dL) 92 117 H Random Glucose Hemoglobin A1c Calcium Phosphorus Magnesium % Saturation Total Bilirubin AST ALT Alkaline Phosphatase Total Protein Albumin Globulin Albumin/Globulin Ratio Triglycerides Cholesterol LDL Cholesterol Direct HDL Cholesterol Vitamin B12 Folate Assessment & Plan (1) Hematochezia Assessment and Plan: Patient with recurrent LGI bleeding. r/o diverticular bleeding, AVM, ischemic, infectious, hemorrhoidal or UGI bleeding with rapid transit. Had syncope related to acute and rapid loss of blood with transient hypotension upon standing up. IV fluids and transfuse to hgb>10 Clear liquid diet and preparation for colonoscopy +/- EGD in am IV Protonix Status: Acute (2) Diverticulosis large intestine w/o perforation or abscess w/o bleeding Status: Chronic (3) Anemia due to blood loss, acute Assessment and Plan: as above Status: Acute
[2017-01-27] MEDS ORDERED: Bisacodyl 5mg EC Tab PO ONE (17:00)
[2017-01-27] MEDS ORDERED: Peg-Electrolyte Oral Soln 4L (Golytely) PO ONE (18:00)
--- NOTE | 2017-01-27 22:11 | CP.PCM.PN ---
<Chacorta Thorpe - Last Filed: 01/27/17 22:04> Subjective - Date & Time of Evaluation Date of Evaluation: 01/27/17 Time of Evaluation: 08:00 - Subjective Subjective: PGY-[address] Machado's Service 66yo Male with PMHx for diverticulitis, internal-hemorrhoids, and HTN - presents c/o a single episode of bloody diarrhea and a near syncopal episode yesterday. He describes the diarrhea as bloody (bright red). Upon standing, he reported feeling lightheaded, had a near syncopal episode, fell, and hit his head on a cabinet. He denied LOC. CT head w/o contrast - was NEGATIVE. CT Abd/ Pel showed extensive colonic diverticulosis w/o definite diverticulitis. During the next 10 hours the pt's Hgb dropped from 11 to 8.7. He was then type and crossed and transfused 2u of blood. Just prior to the transfusion, he was examined and complained of headache, left shoulder pain from his fall, and LUQ abdominal pain that was superficial in nature that had been coming/going for over 1 year. He deined fever, chillls, chest pain, difficulty breathing, nausea , vomiting, diarrhea. He also had not had a BM since his last episode the previous day. Objective - Vital Signs/Intake and Output Vital Signs (last 24 hours): Temp Pulse Resp BP Pulse Ox 98.8 F 75 20 131/81 97 01/27/17 18:00 01/27/17 18:00 01/27/17 18:00 01/27/17 18:00 01/27/17 18:00 Intake and Output: 01/27/17 01/28/17 18:59 06:59 Intake Total 1100 Balance 1100 - Medications Medications: Current Medications Pantoprazole Sodium 80 mg/ (Sodium Chloride) 100 mls @ 10 mls/hr IVP .Q10H [facility] PRN Reason: 8 MG/HR Last Admin: 01/27/17 11:55 Dose: 10 mls/hr Sodium Chloride (Sodium Chloride 0.9%) 1,000 mls @ 80 mls/hr IV .[id number] [facility] Last Admin: 01/27/17 13:48 Dose: Not Given Insulin Aspart (Novolog) 0 unit SC ACHS [facility] PRN Reason: Protocol Last Admin: 01/27/17 18:00 Dose: Not Given Montelukast Sodium (Singulair) 10 mg PO HS [facility] Polyethylene Glycol/Electrolytes (Golytely) 2,000 ml PO ONCE ONE Stop: 01/28/17 06:01 Potassium Chloride (K-Dur 20 Meq Er Tab) 40 meq PO ONCE ONE Stop: 01/27/17 23:39 Rosuvastatin Calcium (Crestor) 5 mg PO HS [facility] Last Admin: 01/27/17 03:56 Dose: 5 mg - Labs Labs: 01/27/17 05:57 01/27/17 05:57 PT 12.8 SECONDS (9.7-12.2) H 01/26/17 19:28 INR 1.1 01/26/17 19:28 APTT 25 SECONDS (21-34) 01/26/17 19:28 - Constitutional Appears: Non-toxic, No Acute Distress - Head Exam Head Exam: ATRAUMATIC, NORMAL INSPECTION - Eye Exam Eye Exam: EOMI Pupil Exam: NORMAL ACCOMODATION - ENT Exam ENT Exam: Mucous Membranes Moist - Neck Exam Neck Exam: Full ROM, Normal Inspection. absent: Lymphadenopathy - Respiratory Exam Respiratory Exam: Clear to Ausculation Bilateral, NORMAL BREATHING PATTERN - Cardiovascular Exam Cardiovascular Exam: REGULAR RHYTHM, RRR, +S1, +S2. absent: JVD - GI/Abdominal Exam GI & Abdominal Exam: Soft, Tenderness (LLQ), Normal Bowel Sounds - Neurological Exam Neurological Exam: Alert, Awake, CN II-XII Intact, Normal Gait, Oriented x3 - Psychiatric Exam Psychiatric exam: Normal Affect, Normal Mood - Skin Skin Exam: Dry, Intact, Normal Color, Warm Assessment and Plan - Assessment and Plan (Free Text) Plan: Gastrointestinal hemorrhage -BRBPR during 1 diarrheal episode prior to admission. - Hgb 11; Hct 35.2; MCV 75L -Type and cross 2 units -Consult GI, , f/u recs -IV fluids and transfuse to hgb>10 -Clear liquid diet and preparation for colonoscopy +/- EGD in am -IV Protonix -Pantoprazol 80mg IV (in ED). -Protonix drip at 8cc/hr -Stool occult (+) Anemia - Hgb 11; Hct 35.2; MCV 75L -Type and cross 2 units on 01/27 -Vitals: Stable -F/U cbc in am -Stool occult (+) -Fe ordered -TIBC ordered -%Sat normal -Reticulocyte count normal -Folate, B12 Normal -PT 12.8 mildy elevated -PTT/INR normal Hx Diverticulitis -Consult GI, Dr. Bliss, f/u recs -> possible endoscopy / colonoscopy in AM -WBC 7.3 Scalp Laceration - at posterior/right scalp -> closed with dermabond in ED. -CT head w/o contrast - NEGATIVE. -CT of the brain. Other findings: 1. Focal area of the sclerosis and cystic change of the left sphenoid bone at the level of the floor the middle cranial fossa. Fibrous dysplasia is among the diagnostic considerations. MRI might be helpful, 2. Mucosal thickening in the ethmoid air cells bilaterally. -Pt. has no neurological deficits at this time Hypertension - BP 99/58 on admission - BP next day 131/81 s/p 2u - Hold Verapamil 240mg PO qd - NS0.9 at 80cc/hr Diabetes mellitus -Accuchecks -RISS -HOLD Glimepiride 4mg PO qd -HgA1c 5.5 Hyperlipidemia -Crestor 5 mg PO QHS -FLP all WNL Arthritis - b/l knee pain - HOLD Diclofenac 74mg PO BID due to increase risk of bleeding Hx Asthma - asymptomatic - Singulair 10mg PO qd - consider Duonebs if needed. Prophylactic measure -Protonix drip at 8cc/hr -Hold anticoagulation due to bleed -SCDs <Randy Machado H - Last Filed: 01/28/17 16:58> Objective - Vital Signs/Intake and Output Vital Signs (last 24 hours): Temp Pulse Resp BP Pulse Ox 97.9 F 78 20 156/87 H 97 01/28/17 15:29 01/28/17 15:29 01/28/17 15:29 01/28/17 15:29 01/28/17 15:29 Intake and Output: 01/28/17 01/28/17 06:59 18:59 Intake Total 720 970 Output Total 600 Balance 120 970 - Medications Medications: Current Medications Pantoprazole Sodium 80 mg/ (Sodium Chloride) 100 mls @ 10 mls/hr IVP .Q10H [facility] PRN Reason: 8 MG/HR Last Admin: 01/28/17 05:10 Dose: 10 mls/hr Sodium Chloride (Sodium Chloride 0.9%) 1,000 mls @ 80 mls/hr IV .[id number] [facility] Last Admin: 01/28/17 14:34 Dose: Not Given Insulin Aspart (Novolog) 0 unit SC ACHS [facility] PRN Reason: Protocol Last Admin: 01/28/17 12:30 Dose: Not Given Montelukast Sodium (Singulair) 10 mg PO HS [facility] Last Admin: 01/27/17 22:47 Dose: 10 mg Rosuvastatin Calcium (Crestor) 5 mg PO HS [facility] Last Admin: 01/27/17 22:47 Dose: 5 mg - Labs Labs: 01/28/17 06:28 01/28/17 06:28 PT 12.8 SECONDS (9.7-12.2) H 01/26/17 19:28 INR 1.1 01/26/17 19:28 APTT 25 SECONDS (21-34) 01/26/17 19:28 Attending/Attestation - Attestation I have personally seen and examined this patient.: Yes I have fully participated in the care of the patient.: Yes I have reviewed all pertinent clinical information, including history, physical exam and plan: Yes Notes (Text): Medical Attending: Patient was seen and examined by me. Agree with the above note by the resident. The patient was in the process of receiving additional PRBCs since his Hgb did drop. He will be later undergoing EGD/colonscopy with GI He is currently on protonix BID. The area where he hit his scalp is doing ok, he denied dizziness and he was answering questions appropriately. He has a lot of back and left body pain reminaing at this time from the fall. thank you Randy Machado
[2017-01-27] MEDS ORDERED: Potassium Chloride 20 mEq ER Tab PO ONE (23:38)
[2017-01-28] MEDS: Sodium Chloride 0.9% 1,000 ML IV SCH ×3 (02:26→14:34)
[2017-01-28] MEDS: Pantoprazole 80 MG in Sodium Chloride 0.9% 100 ML IVP SCH ×2 (05:10→18:03)
[2017-01-28] MEDS ORDERED: Peg-Electrolyte Oral Soln 4L (Golytely) PO ONE (06:00)
[2017-01-28 06:55] LABS: CHLORIDE 104 mmol/L (98-107); SODIUM 143 mmol/L (132-148)
[2017-01-28 06:56] LABS: POTASSIUM 3.7 mmol/L (3.6-5.2)
[2017-01-28 06:57] LABS: IRON 34 ug/dL (49-181)
[2017-01-28 06:58] LABS: ALB/GLOB RATIO 1.3 (1.0-2.1); ALKALINE PHOSPHATASE 59 U/L (38-126); ALT/SGPT 47 U/L (21-72); AST/SGOT 38 U/L (17-59); BILIRUBIN,TOTAL 0.9 mg/dL (0.2-1.3); BLOOD UREA NITROGEN 4 mg/dL (9-20); CALCIUM 8.3 mg/dl (8.6-10.4); CARBON DIOXIDE 28 mmol/L (22-30); GFR AFRICAN-AMERICAN > 60; GLUCOSE,RANDOM 82 mg/dL (75-110); PHOSPHOROUS 2.1 mg/dL (2.5-4.5); TOTAL PROTEIN 6.7 g/dL (6.3-8.3)
[2017-01-28 07:29] LABS: BASO % 1.2 % (0.0-2.0); EOS # 0.1 K/uL (0.0-0.7); EOS % 3.9 % (0.0-4.0); HEMATOCRIT 36.9 % (35.0-51.0); LYMPH # 0.7 K/uL (1.0-4.3); LYMPH % 20.8 % (20.0-40.0); MEAN CELL VOLUME 74.3 fL (80.0-94.0); MEAN CORPUSCULAR HEMOGLOBIN 23.5 pg (27.0-31.0); MEAN CORPUSCULAR HGB CONC 31.6 g/dL (33.0-37.0); MEAN PLATELET VOLUME 9.6 fL (7.2-11.7); MONO # 0.4 K/uL (0.0-0.8); MONO % 11.1 % (0.0-10.0); RED CELL DISTRIBUTION WIDTH 15.6 % (11.5-14.5); WHITE BLOOD COUNT 3.4 K/uL (4.8-10.8)
[2017-01-28 07:56] LABS: RBC URINE < 1 /hpf (0-3); URINE BILIRUBIN NEGATIVE (NEGATIVE); URINE BLOOD NEGATIVE (NEGATIVE); URINE COLOR Yellow (YELLOW); URINE GLUCOSE (UA) NORMAL (Normal); URINE KETONE NEGATIVE (NEGATIVE); URINE LEUKOCYTE ESTERASE NEG Leu/uL (Negative); URINE PROTEIN NEGATIVE (NEGATIVE); URINE UROBILINOGEN NORMAL mg/dL (0.2-1.0); WBC URINE < 1 /hpf (0-5)
[2017-01-28] MEDS: (Novolog) Insulin Aspart, Recombinant 100 u/ml 10 ml vial SC SCH ×4 (08:24→21:48)
[2017-01-28] MEDS ORDERED: Propofol 10 mg/ml Inj (20 ML) ONE (08:58)
[2017-01-28] MEDS ORDERED: Lactated Ringer's 500 ML IV ONE (09:00)
--- NOTE | 2017-01-28 09:40 | CP.PCM.PN ---
Subjective - Date & Time of Evaluation Date of Evaluation: 01/28/17 Time of Evaluation: 09:37 - Subjective Subjective: EGD and Colonoscopy performed. See full operative report and photos No evidence of active or recent bleeding. Medium hiatal hernia Mild Gastritis Extensive diverticulosis (any of these tics may have bled and stopped). No clot or stigmata of bleeding. No AVMs or ulcers. Internal hemorrhoids without active bleeding. Monitor for bleeding and advance diet as tolerated Avoid ASA or Nsaids if possible Consider outpatient Pillcam to evaluate small bowel due to recurrence of bleeding episodes. No further work up at this time. Repeat CBC. (hgb 11 post transfusion) Objective - Vital Signs/Intake and Output Vital Signs (last 24 hours): Temp Pulse Resp BP Pulse Ox 97.8 F 60 20 138/78 100 01/28/17 09:02 01/28/17 09:02 01/28/17 09:02 01/28/17 09:02 01/28/17 09:02 Intake and Output: 01/28/17 01/28/17 06:59 18:59 Intake Total 720 Output Total 600 Balance 120 - Medications Medications: Current Medications Pantoprazole Sodium 80 mg/ (Sodium Chloride) 100 mls @ 10 mls/hr IVP .Q10H [facility] PRN Reason: 8 MG/HR Last Admin: 01/28/17 05:10 Dose: 10 mls/hr Sodium Chloride (Sodium Chloride 0.9%) 1,000 mls @ 80 mls/hr IV .[id number] [facility] Last Admin: 01/28/17 02:26 Dose: Not Given Insulin Aspart (Novolog) 0 unit SC ACHS [facility] PRN Reason: Protocol Last Admin: 01/28/17 08:24 Dose: Not Given Montelukast Sodium (Singulair) 10 mg PO HS [facility] Last Admin: 01/27/17 22:47 Dose: 10 mg Rosuvastatin Calcium (Crestor) 5 mg PO HS [facility] Last Admin: 01/27/17 22:47 Dose: 5 mg - Labs Labs: 01/28/17 06:28 01/28/17 06:28 PT 12.8 SECONDS (9.7-12.2) H 01/26/17 19:28 INR 1.1 01/26/17 19:28 APTT 25 SECONDS (21-34) 04/30/17 19:28 Assessment and Plan (1) Hematochezia Status: Acute (2) Diverticulosis large intestine w/o perforation or abscess w/o bleeding Status: Chronic (3) Anemia due to blood loss, acute Status: Acute
--- NOTE | 2017-01-28 14:01 | CARD ---
APPROVED REPORT EKG Measurement Heart [id number] <Conclusion> Normal sinus rhythm Normal ECG
--- NOTE | 2017-01-28 14:40 | RAD ---
Left shoulder three views History: Shoulder pain. Comparison: None available. Findings: Diffuse osteopenia. Mild narrowing of the glenohumeral joint space. Mild narrowing of the acromioclavicular joint space. No evidence for acute displaced fracture dislocation. Degenerative changes in the spine with paravertebral osteophytes. Impression: Mild degenerative changes. If pain persists, consider MRI.
[2017-01-28 15:35] VITALS: RESP 20
--- NOTE | 2017-01-28 18:02 | CP.PCM.PN ---
<Chacorta Thorpe - Last Filed: 01/28/17 22:43> Subjective - Date & Time of Evaluation Date of Evaluation: 01/28/17 Time of Evaluation: 07:20 - Subjective Subjective: PGY-[address] Machado's Service 66yo Male with PMHx for diverticulitis, internal-hemorrhoids, and HTN - presents c/o a single episode of bloody diarrhea and a near syncopal episode. Yesterday he recieved 2u of blood and his hgb jumped to 11.7 from 8.7. He is scheduled for a colonoscopy and EGD later today. He complained of left shoulder pain today with decreased range of motion. He says he is right hand dominant. He denied fever, chills, chest pain, difficulty breathing, nausea, vomiting, diarrhea. Objective - Vital Signs/Intake and Output Vital Signs (last 24 hours): Temp Pulse Resp BP Pulse Ox 97.9 F 78 20 156/87 H 97 01/28/17 15:29 01/28/17 15:29 01/28/17 15:29 01/28/17 15:29 01/28/17 15:29 Intake and Output: 01/28/17 01/28/17 06:59 18:59 Intake Total 720 970 Output Total 600 Balance 120 970 - Medications Medications: Current Medications Pantoprazole Sodium 80 mg/ (Sodium Chloride) 100 mls @ 10 mls/hr IVP .Q10H [facility] PRN Reason: 8 MG/HR Last Admin: 01/28/17 05:10 Dose: 10 mls/hr Sodium Chloride (Sodium Chloride 0.9%) 1,000 mls @ 80 mls/hr IV .[id number] [facility] Last Admin: 01/28/17 14:34 Dose: Not Given Insulin Aspart (Novolog) 0 unit SC ACHS [facility] PRN Reason: Protocol Last Admin: 01/28/17 17:21 Dose: Not Given Montelukast Sodium (Singulair) 10 mg PO HS [facility] Last Admin: 01/27/17 22:47 Dose: 10 mg Rosuvastatin Calcium (Crestor) 5 mg PO HS [facility] Last Admin: 01/27/17 22:47 Dose: 5 mg - Labs Labs: 01/28/17 06:28 01/28/17 06:28 PT 12.8 SECONDS (9.7-12.2) H 01/26/17 19:28 INR 1.1 01/26/17 19:28 APTT 25 SECONDS (21-34) 01/26/17 19:28 - Constitutional Appears: Non-toxic, No Acute Distress - Head Exam Head Exam: ATRAUMATIC, NORMAL INSPECTION - Eye Exam Eye Exam: EOMI - ENT Exam ENT Exam: Mucous Membranes Moist - Neck Exam Neck Exam: Full ROM. absent: Lymphadenopathy - Respiratory Exam Respiratory Exam: Clear to Ausculation Bilateral. absent: Wheezes - Cardiovascular Exam Cardiovascular Exam: REGULAR RHYTHM, RRR, +S1, +S2. absent: JVD - GI/Abdominal Exam GI & Abdominal Exam: Soft, Normal Bowel Sounds. absent: Tenderness - Exam Exam: NORMAL INSPECTION - Extremities Exam Extremities Exam: Full ROM. absent: Joint Swelling, Pedal Edema Additional comments: left shoulder pain when internally/externally rotating or abducting. Cannot lift above 90 degrees above head. - Back Exam Back Exam: absent: CVA tenderness (L), CVA tenderness (R) - Neurological Exam Neurological Exam: Alert, Awake, CN II-XII Intact, Normal Gait, Oriented x3 - Psychiatric Exam Psychiatric exam: Normal Affect, Normal Mood - Skin Skin Exam: Dry, Intact, Normal Color, Warm Assessment and Plan - Assessment and Plan (Free Text) Plan: Gastrointestinal hemorrhage -BRBPR during 1 diarrheal episode prior to admission. - Hgb 11; Hct 35.2; MCV 75L -Type and cross 2 units -Consult GI, , f/u recs -IV fluids and transfuse to hgb>10 -Clear liquid diet and preparation for colonoscopy +/- EGD in am -IV Protonix -EGD and Colonoscopy performed. See full operative report and photos No evidence of active or recent bleeding. Medium hiatal hernia Mild Gastritis -Pt. had mild bloody BM after colonoscopy per nurse. Pt. was seen afterwards with no complaints, will monitor closely and f/u CBC in the AM -Pantoprazol 80mg IV (in ED). -Protonix drip at 8cc/hr -Stool occult (+) Anemia - Hgb 11; Hct 35.2; MCV 75L -Type and cross 2 units on 01/27 -Vitals: Stable -F/U cbc in am -Stool occult (+) -Fe ordered -TIBC ordered -%Sat normal -Reticulocyte count normal -Folate, B12 Normal -PT 12.8 mildy elevated -PTT/INR normal Hx Diverticulitis -Consult GI, Dr. Bliss, f/u recs -> possible endoscopy / colonoscopy in AM -WBC 7.3 Scalp Laceration - at posterior/right scalp -> closed with dermabond in ED. -CT head w/o contrast - NEGATIVE. -CT of the brain. Other findings: 1. Focal area of the sclerosis and cystic change of the left sphenoid bone at the level of the floor the middle cranial fossa. Fibrous dysplasia is among the diagnostic considerations. MRI might be helpful, 2. Mucosal thickening in the ethmoid air cells bilaterally. -Pt. has no neurological deficits at this time Hypertension - BP 99/58 on admission - BP next day 131/81 s/p 2u - Hold Verapamil 240mg PO qd - NS0.9 at 80cc/hr Left Shoulder pain - decreased ROM in abduction/adduction, internal/external rotation due to pain - Xray shoulder - negative - MRI w/wo contrast of shoulder Diabetes mellitus -Accuchecks -RISS -HOLD Glimepiride 4mg PO qd -HgA1c 5.5 Hyperlipidemia -Crestor 5 mg PO QHS -FLP all WNL Arthritis - b/l knee pain - HOLD Diclofenac 74mg PO BID due to increase risk of bleeding Hx Asthma - asymptomatic - Singulair 10mg PO qd - consider Duonebs if needed. Prophylactic measure -Protonix drip at 8cc/hr -Hold anticoagulation due to bleed -SHIRLEYs <Randy Machado H - Last Filed: 01/29/17 08:08> Objective - Vital Signs/Intake and Output Vital Signs (last 24 hours): Temp Pulse Resp BP Pulse Ox 97.8 F 67 20 151/80 H 97 01/29/17 00:52 01/29/17 00:52 01/29/17 00:52 01/29/17 00:52 01/29/17 00:52 Intake and Output: 01/29/17 01/29/17 06:59 18:59 Intake Total 880 Output Total 1150 Balance -270 - Medications Medications: Current Medications Pantoprazole Sodium 80 mg/ (Sodium Chloride) 100 mls @ 10 mls/hr IVP .Q10H [facility] PRN Reason: 8 MG/HR Last Admin: 01/29/17 04:36 Dose: 10 mls/hr Sodium Chloride (Sodium Chloride 0.9%) 1,000 mls @ 80 mls/hr IV .[id number] [facility] Last Admin: 01/29/17 05:10 Dose: Not Given Insulin Aspart (Novolog) 0 unit SC ACHS [facility] PRN Reason: Protocol Last Admin: 01/29/17 07:48 Dose: Not Given Montelukast Sodium (Singulair) 10 mg PO HS [facility] Last Admin: 01/28/17 21:49 Dose: 10 mg Rosuvastatin Calcium (Crestor) 5 mg PO HS [facility] Last Admin: 01/28/17 21:49 Dose: 5 mg - Labs Labs: 01/29/17 06:27 01/29/17 06:27 PT 12.8 SECONDS (9.7-12.2) H 01/26/17 19:28 INR 1.1 01/26/17 19:28 APTT 25 SECONDS (21-34) 01/26/17 19:28 Attending/Attestation - Attestation I have personally seen and examined this patient.: Yes I have fully participated in the care of the patient.: Yes I have reviewed all pertinent clinical information, including history, physical exam and plan: Yes Notes (Text): Medical attending: Patient was seen and examined by me, reviewed the above note by biomedical field service engineer. We need to monitor the patient's hemoglobin. As mentioned before the patient is status post transfusion of 2 units of PRBCs he also had an EGD as well as colonoscopy. The the colonoscopy showed multiple small and large diverticula in the ascending transverse descending as well as the sigmoid colon. GI recommended that he is not taking aspirin or NSAID EGD showed that there is a hiatal hernia with gastritis, biopsy was done as well. Next line the patient was really concerned about his left shoulder he wasn't able to elevate his left shoulder due to pain. He says this is a new thing after he had fallen. We'll try to check additional imaging of that shoulder. He might have old fracture there from before Thank you very much, Randy Machado
[2017-01-29] MEDS: Sodium Chloride 0.9% 1,000 ML IV SCH ×3 (00:33→14:30)
[2017-01-29] MEDS: Pantoprazole 80 MG in Sodium Chloride 0.9% 100 ML IVP SCH ×2 (04:36→15:35)
[2017-01-29 06:44] LABS: CHLORIDE 103 mmol/L (98-107); POTASSIUM 3.7 mmol/L (3.6-5.2); SODIUM 139 mmol/L (132-148)
[2017-01-29 06:45] LABS: EOS # 0.1 K/uL (0.0-0.7); EOS % 3.4 % (0.0-4.0); LYMPH # 0.6 K/uL (1.0-4.3); LYMPH % 14.7 % (20.0-40.0); MEAN CELL VOLUME 73.8 fL (80.0-94.0); MEAN CORPUSCULAR HEMOGLOBIN 23.5 pg (27.0-31.0); MEAN CORPUSCULAR HGB CONC 31.8 g/dL (33.0-37.0); MEAN PLATELET VOLUME 10.3 fL (7.2-11.7); MONO # 0.4 K/uL (0.0-0.8); NRBC % 0.2 % (0.0-2.0); RED CELL DISTRIBUTION WIDTH 15.5 % (11.5-14.5)
[2017-01-29 06:46] LABS: ALB/GLOB RATIO 1.3 (1.0-2.1); ALKALINE PHOSPHATASE 45 U/L (38-126); ALT/SGPT 45 U/L (21-72); AST/SGOT 31 U/L (17-59); BILIRUBIN,TOTAL 0.5 mg/dL (0.2-1.3); BLOOD UREA NITROGEN 7 mg/dL (9-20); CARBON DIOXIDE 30 mmol/L (22-30); GFR AFRICAN-AMERICAN > 60; TOTAL PROTEIN 5.3 g/dL (6.3-8.3)
[2017-01-29 06:47] LABS: CALCIUM 7.8 mg/dl (8.6-10.4); GLUCOSE,RANDOM 88 mg/dL (75-110); MAGNESIUM 1.7 mg/dL (1.6-2.3); PHOSPHOROUS 2.5 mg/dL (2.5-4.5)
[2017-01-29] MEDS: (Novolog) Insulin Aspart, Recombinant 100 u/ml 10 ml vial SC SCH ×4 (07:48→21:08)
--- NOTE | 2017-01-29 11:22 | CP.PCM.PN ---
Subjective - Date & Time of Evaluation Date of Evaluation: 01/29/17 Time of Evaluation: 11:20 - Subjective Subjective: One scant bleeding episode after colonoscopy No further pain or bleeding Objective - Vital Signs/Intake and Output Vital Signs (last 24 hours): Temp Pulse Resp BP Pulse Ox 98 F 67 20 135/81 96 01/29/17 07:00 01/29/17 07:00 01/29/17 07:00 01/29/17 07:00 01/29/17 07:00 Intake and Output: 01/29/17 01/29/17 06:59 18:59 Intake Total 880 Output Total 1150 Balance -270 - Medications Medications: Current Medications Pantoprazole Sodium 80 mg/ (Sodium Chloride) 100 mls @ 10 mls/hr IVP .Q10H [facility] PRN Reason: 8 MG/HR Last Admin: 01/29/17 04:36 Dose: 10 mls/hr Sodium Chloride (Sodium Chloride 0.9%) 1,000 mls @ 80 mls/hr IV .[id number] [facility] Last Admin: 01/29/17 05:10 Dose: Not Given Insulin Aspart (Novolog) 0 unit SC ACHS [facility] PRN Reason: Protocol Last Admin: 01/29/17 07:48 Dose: Not Given Montelukast Sodium (Singulair) 10 mg PO [facility] Last Admin: 01/28/17 21:49 Dose: 10 mg Rosuvastatin Calcium (Crestor) 5 mg PO [facility] Last Admin: 01/28/17 21:49 Dose: 5 mg - Labs Labs: 01/29/17 06:27 01/29/17 06:27 PT 12.8 SECONDS (9.7-12.2) H 01/26/17 19:28 INR 1.1 01/26/17 19:28 APTT 25 SECONDS (21-34) 01/26/17 19:28 - Constitutional Appears: No Acute Distress - Head Exam Head Exam: ATRAUMATIC, NORMOCEPHALIC - Eye Exam Eye Exam: EOMI, PERRL - Respiratory Exam Respiratory Exam: NORMAL BREATHING PATTERN - Cardiovascular Exam Cardiovascular Exam: REGULAR RHYTHM - GI/Abdominal Exam GI & Abdominal Exam: Soft, Normal Bowel Sounds. absent: Tenderness, Mass, Organomegaly, Rebound - Extremities Exam Extremities Exam: Normal Inspection Assessment and Plan (1) Hematochezia Assessment & Plan: likely due to diverticular bleeding For outpatient follow up if H/H stable No further workup though subtotal colectomy would be needed for rebleeding unless bleeding scan/angio are +. No bleeding source seen in spite of several admissions for the same symptoms. Status: Acute (2) Diverticulosis large intestine w/o perforation or abscess w/o bleeding Assessment & Plan: as above Status: Chronic (3) Anemia due to blood loss, acute Assessment & Plan: Repeat CBC Status: Acute
[2017-01-29 16:32] LABS: HEMATOCRIT 32.2 % (35.0-51.0); MEAN CELL VOLUME 74.6 fL (80.0-94.0); MEAN CORPUSCULAR HEMOGLOBIN 23.5 pg (27.0-31.0); MEAN CORPUSCULAR HGB CONC 31.5 g/dL (33.0-37.0); MEAN PLATELET VOLUME 9.7 fL (7.2-11.7); RED CELL DISTRIBUTION WIDTH 15.4 % (11.5-14.5); WHITE BLOOD COUNT 4.7 K/uL (4.8-10.8)
--- NOTE | 2017-01-29 16:56 | CP.PCM.PN ---
<Chacorta Thorpe - Last Filed: 01/29/17 18:28> Subjective - Date & Time of Evaluation Date of Evaluation: 01/29/17 Time of Evaluation: 07:20 - Subjective Subjective: PGY-[address] Machado's Service 66yo Male with PMHx for diverticulitis, internal-hemorrhoids, and HTN - presents c/o a single episode of bloody diarrhea and a near syncopal episode. He complained of left shoulder pain today with decreased range of motion. Xray did not show any acute pathology, will follow with MRI. He has not had any other episodes of hematochezia s/p colonoscopy/EGD. He denied fever, chills, chest pain, difficulty breathing, nausea, vomiting, diarrhea. Objective - Vital Signs/Intake and Output Vital Signs (last 24 hours): Temp Pulse Resp BP Pulse Ox 98.0 F 75 20 154/89 H 98 01/29/17 16:06 01/29/17 16:06 01/29/17 16:06 01/29/17 16:06 01/29/17 16:06 Intake and Output: 01/29/17 01/29/17 06:59 18:59 Intake Total 880 1140 Output Total 1150 Balance -270 1140 - Medications Medications: Current Medications Pantoprazole Sodium 80 mg/ (Sodium Chloride) 100 mls @ 10 mls/hr IVP .Q10H [facility] PRN Reason: 8 MG/HR Last Admin: 01/29/17 15:35 Dose: 10 mls/hr Sodium Chloride (Sodium Chloride 0.9%) 1,000 mls @ 80 mls/hr IV .[id number] [facility] Last Admin: 01/29/17 14:30 Dose: 80 mls/hr Insulin Aspart (Novolog) 0 unit SC ACHS [facility] PRN Reason: Protocol Last Admin: 01/29/17 13:00 Dose: Not Given Montelukast Sodium (Singulair) 10 mg PO HS [facility] Last Admin: 01/28/17 21:49 Dose: 10 mg Rosuvastatin Calcium (Crestor) 5 mg PO HS [facility] Last Admin: 01/28/17 21:49 Dose: 5 mg - Labs Labs: 01/29/17 16:24 01/29/17 06:27 PT 12.8 SECONDS (9.7-12.2) H 04/30/17 19:28 INR 1.1 01/26/17 19:28 APTT 25 SECONDS (21-34) 01/26/17 19:28 - Constitutional Appears: Non-toxic, No Acute Distress - Head Exam Head Exam: ATRAUMATIC, NORMOCEPHALIC - Eye Exam Eye Exam: EOMI - ENT Exam ENT Exam: Mucous Membranes Moist - Neck Exam Neck Exam: Full ROM - Respiratory Exam Respiratory Exam: Clear to Ausculation Bilateral, NORMAL BREATHING PATTERN - Cardiovascular Exam Cardiovascular Exam: REGULAR RHYTHM, +S1, +S2. absent: Murmur - GI/Abdominal Exam GI & Abdominal Exam: Soft, Normal Bowel Sounds. absent: Tenderness - Extremities Exam Extremities Exam: absent: Full ROM (left should decreased ROM in abduction/ adduction and internal/external rotation), Pedal Edema, Tenderness - Back Exam Back Exam: NORMAL INSPECTION - Neurological Exam Neurological Exam: Alert, Awake, CN II-XII Intact, Normal Gait, Oriented x3 - Psychiatric Exam Psychiatric exam: Normal Affect, Normal Mood - Skin Skin Exam: Dry, Intact, Normal Color, Warm Assessment and Plan - Assessment and Plan (Free Text) Plan: Gastrointestinal hemorrhage - BRBPR during 1 diarrheal episode prior to admission. - Hgb 11; Hct 35.2; MCV 75L -Type and cross 2 units - Consult GI, , f/u recs -IV fluids and transfuse to hgb>10 -IV Protonix -EGD and Colonoscopy performed. See full operative report and photos No evidence of active or recent bleeding. Medium hiatal hernia Mild Gastritis -f/u in 2 weeks possible pill cam for further evaluation -Pt. had mild bloody BM after colonoscopy per nurse. Pt. was seen afterwards with no complaints, will monitor closely and f/u CBC in the AM -Protonix drip at 10cc/hr Anemia stable - Hgb 11; Hct 35.2; MCV 75L -Type and cross 2 units on 01/27 -Vitals: Stable -F/U cbc in am -Stool occult (+) -Fe 34 low on 5 -TIBC normal on 01/28 -%Sat 14 low on 5/ - Reticulocyte count normal - Folate, B12 Normal - PT 12.8 mildy elevated - PTT/INR normal Scalp Laceration resolved - at posterior/right scalp -> closed with dermabond in ED. - CT head w/o contrast - NEGATIVE. - CT of the brain. Other findings: 1. Focal area of the sclerosis and cystic change of the left sphenoid bone at the level of the floor the middle cranial fossa. Fibrous dysplasia is among the diagnostic considerations. MRI might be helpful, 2. Mucosal thickening in the ethmoid air cells bilaterally. - Pt. has no neurological deficits at this time Hypertension stable - BP 99/58 on admission - BP next day 131/81 s/p 2u - Hold Verapamil 240mg PO qd - NS 0.9 at 80cc/hr Left Shoulder pain - decreased ROM in abduction/adduction, internal/external rotation due to pain - Xray shoulder - negative for acute findings - MRI wo contrast of shoulder - needs official read Diabetes mellitus stable - Accuchecks - RISS - HOLD Glimepiride 4mg PO qd - HgA1c 5.5 Hyperlipidemia - Crestor 5 mg PO QHS - FLP all WNL Arthritis - b/l knee pain - HOLD Diclofenac 74mg PO BID due to increase risk of bleeding Hx Asthma stable - asymptomatic - Singulair 10mg PO qd - consider Duonebs if needed. Prophylactic measure - Protonix drip at 8cc/hr - Hold anticoagulation due to bleed - SCDs - Heart healthy diet <Randy Machado H - Last Filed: 01/29/17 18:45> Objective - Vital Signs/Intake and Output Vital Signs (last 24 hours): Temp Pulse Resp BP Pulse Ox 98.0 F 75 20 154/89 H 98 01/29/17 16:06 01/29/17 16:06 01/29/17 16:06 01/29/17 16:06 01/29/17 16:06 Intake and Output: 01/29/17 01/29/17 06:59 18:59 Intake Total 880 1140 Output Total 1150 Balance -270 1140 - Medications Medications: Current Medications Insulin Aspart (Novolog) 0 unit SC ACHS [facility] PRN Reason: Protocol Last Admin: 01/29/17 18:12 Dose: Not Given Montelukast Sodium (Singulair) 10 mg PO HS [facility] Last Admin: 01/28/17 21:49 Dose: 10 mg Pantoprazole Sodium (Protonix Ec Tab) 40 mg PO DAILY [facility] Rosuvastatin Calcium (Crestor) 5 mg PO HS [facility] Last Admin: 01/28/17 21:49 Dose: 5 mg - Labs Labs: 01/29/17 16:24 01/29/17 06:27 PT 12.8 SECONDS (9.7-12.2) H 01/26/17 19:28 INR 1.1 01/26/17 19:28 APTT 25 SECONDS (21-34) 01/26/17 19:28 Attending/Attestation - Attestation I have personally seen and examined this patient.: Yes I have fully participated in the care of the patient.: Yes I have reviewed all pertinent clinical information, including history, physical exam and plan: Yes Notes (Text): Medical attending: Patient was seen and examined by me, reviewed the above note by phlebotomist medical lab assistant. We saw the patient earlier in the day. The Hgb is increased to 10.1 today, as mentioned previously he had a blood transfusion. BP and HR are also ok as well. Also as mentioned before the patient completed colonoscopy showed multiple small and large diverticula in the ascending transverse descending as well as the sigmoid colon. EGD showed that there is a hiatal hernia with gastritis, biopsy was done as well. GI recommended that he is not taking aspirin or NSAID He had MRI of the left shoulder today and are pending the read at this time. This maybe chronic pain, however he says the pain is new after the fall. XRAY was negative for a fracture however on exam he has difficulty elevating his arm past 90 degrees and difficulty with abbduction of his arm. Thank you very much, Randy Machado
--- NOTE | 2017-01-29 21:11 | MRI ---
MRI left shoulder History: Shoulder pain. Comparison: None available. Technique: Multi-echo multiplanar sequences were performed through the left shoulder without the use of intravenous contrast. Findings: Complete rupture of the distal supraspinatus tendon with tendon retraction measuring approximately 1.9 centimeters. No significant muscle atrophy. Partial articular surface tearing with a moderate distal tendinopathy of the infraspinatus tendon. No tendon retraction or muscle atrophy. Teres minor tendon is preserved. Complete full-thickness tear of the superior distal tendon strand fibers of the subscapularis with tendon retraction measuring approximately 1.3 centimeters. A few of the inferior tendon strand fibers are preserved. Fatty atrophy of the superior muscle belly. Proximal portion of the long head of the biceps tendon appears prominently thickened and frayed with increased signal seen within the proximal attachment suggestive for partial tearing with a severe tendinopathy. Fluid and edema distends the biceps tendon sheath. Evaluation of the glenoid labrum demonstrates fraying with increased signal seen within the posterior labrum extending from superior to inferior as well as at the level of the anterior inferior labrum and superior labrum suggestive for tearing of the labrum. Moderate grade strain at the humeral attachment of the inferior glenohumeral ligament. Large glenohumeral joint effusion with associated synovial debris and hypertrophy. Fluid within the subacromial and subdeltoid bursa. Severe acromioclavicular joint space degenerative changes with joint space narrowing, subchondral edema, and bony hypertrophy. 5 millimeter subchondral cyst formation noted within greater tuberosity of the proximal humerus. Impression: 1. Complete rupture of the distal supraspinatus tendon with tendon retraction measuring approximately 1.9 centimeters. No significant muscle atrophy. 2. Partial articular surface tearing with a moderate distal tendinopathy of the infraspinatus tendon. No tendon retraction or muscle atrophy. 3. Complete full-thickness tear of the superior distal tendon strand fibers of the subscapularis with tendon retraction measuring approximately 1.3 centimeters. A few of the inferior tendon strand fibers are preserved. Fatty atrophy of the superior muscle belly. 4. Proximal portion of the long head of the biceps tendon appears prominently thickened and frayed with increased signal seen within the proximal attachment suggestive for partial tearing with a severe tendinopathy. Fluid and edema distends the biceps tendon sheath. 5. Evaluation of the glenoid labrum demonstrates fraying with increased signal seen within the posterior labrum extending from superior to inferior as well as at the level of the anterior inferior labrum and superior labrum suggestive for tearing of the labrum. 6. Moderate grade strain at the humeral attachment of the inferior glenohumeral ligament. 7. Large glenohumeral joint effusion with associated synovial debris and hypertrophy. Fluid within the subacromial and subdeltoid bursa. 8. Severe acromioclavicular joint space degenerative changes with joint space narrowing, subchondral edema, and bony hypertrophy. 9. 5 millimeter subchondral cyst formation noted within greater tuberosity of the proximal humerus.
[2017-01-30 06:26] LABS: BASO # 0.1 K/uL (0.0-0.2); BASO % 1.2 % (0.0-2.0); EOS # 0.2 K/uL (0.0-0.7); EOS % 4.1 % (0.0-4.0); HEMATOCRIT 31.4 % (35.0-51.0); LYMPH # 0.7 K/uL (1.0-4.3); LYMPH % 16.5 % (20.0-40.0); MEAN CELL VOLUME 73.8 fL (80.0-94.0); MEAN CORPUSCULAR HEMOGLOBIN 23.3 pg (27.0-31.0); MEAN CORPUSCULAR HGB CONC 31.5 g/dL (33.0-37.0); MEAN PLATELET VOLUME 9.3 fL (7.2-11.7); MONO # 0.7 K/uL (0.0-0.8); MONO % 14.8 % (0.0-10.0); NRBC % 0.1 % (0.0-2.0); RED CELL DISTRIBUTION WIDTH 15.6 % (11.5-14.5); WHITE BLOOD COUNT 4.4 K/uL (4.8-10.8)
[2017-01-30 06:52] LABS: CHLORIDE 103 mmol/L (98-107); POTASSIUM 3.6 mmol/L (3.6-5.2); SODIUM 139 mmol/L (132-148)
[2017-01-30 06:54] LABS: GFR AFRICAN-AMERICAN > 60
[2017-01-30 06:55] LABS: ALB/GLOB RATIO 1.2 (1.0-2.1); ALKALINE PHOSPHATASE 44 U/L (38-126); ALT/SGPT 41 U/L (21-72); AST/SGOT 29 U/L (17-59); BILIRUBIN,TOTAL 0.4 mg/dL (0.2-1.3); BLOOD UREA NITROGEN 7 mg/dL (9-20); CARBON DIOXIDE 32 mmol/L (22-30); GLUCOSE,RANDOM 100 mg/dL (75-110); PHOSPHOROUS 2.9 mg/dL (2.5-4.5); TOTAL PROTEIN 5.6 g/dL (6.3-8.3)
[2017-01-30 06:56] LABS: CALCIUM 8.1 mg/dl (8.6-10.4); MAGNESIUM 1.8 mg/dL (1.6-2.3)
[2017-01-30] MEDS: (Novolog) Insulin Aspart, Recombinant 100 u/ml 10 ml vial SC SCH ×2 (08:30→12:03)
--- NOTE | 2017-01-30 08:42 | CP.PCM.CON ---
History of Present Illness - History of Present Illness History of Present Illness: 66M complains of severe left shoulder pain after fall 5 days ago, after near syncopal episode. He says he landed on his left arm, and has had sharp pain localized to shoulder since that time. He says that he had a little pain in shoulder a long time ago, but nothing recently. Now he says he can't lift arm all the way, and when he tried to lift it or put it behind back he has a lot of pain. denies numbness/tingling. Denies neck pain at this time. Denies elbow pain /wrist pain/hand pain. Denies pain in RUE or BLE. Currently denies CP/SOB/ dizziness/nausea/vomiting. Patient admitted for GI bleed. Review of Systems - Review of Systems All systems: reviewed and no additional remarkable complaints except - Constitutional Constitutional: As Per HPI - Cardiovascular Cardiovascular: As Per HPI - Respiratory Respiratory: As Per HPI - Gastrointestinal Gastrointestinal: As Per HPI - Musculoskeletal Musculoskeletal: As Per HPI - Neurological Neurological: As Per HPI - Hematologic/Lymphatic Hematologic: absent: As Per HPI, Easy Bleeding, Easy Bruising, Lymphadenopathy, Other Past Patient History - Infectious Disease Hx of Infectious Diseases: None - Tetanus Immunizations Tetanus Immunization: Unknown - Past Medical History & Family History Past Medical History?: Yes Past Family History: Reviewed and not pertinent - Past Social History Smoking Status: Never Smoked - CARDIAC Hx Hypercholesterolemia: Yes Hx Hypertension: Yes - PULMONARY Hx Respiratory Disorders: Yes Hx Asthma: Yes - NEUROLOGICAL Hx Neurological Disorder: Yes Hx Dizziness: Yes (06/11/14) - HEENT Hx HEENT Problems: Yes Hx Cataracts: Yes (L Cataract Surgery 15 Yrs Ago) - RENAL Hx Chronic Kidney Disease: No - ENDOCRINE/METABOLIC Hx Endocrine Disorders: Yes Hx Diabetes Mellitus Type 2: Yes - HEMATOLOGICAL/ONCOLOGICAL Hx Blood Disorders: Yes Hx Anemia: Yes Hx Cirrhosis: No Hx Hepatitis A: No Hx Hepatitis B: No Hx Hepatitis C: No Hx Human Immunodeficiency Virus (HIV): No - INTEGUMENTARY Hx Dermatological Problems: No - MUSCULOSKELETAL/RHEUMATOLOGICAL Hx Arthritis: Yes - GASTROINTESTINAL Hx Gastrointestinal Disorders: Yes Hx Bowel Surgery: No Hx Clostridium Difficile: No Hx Colitis: No Hx Colostomy: No Hx Constipation: No Hx Crohn's Disease: No Hx Diarrhea: No Hx Diverticulitis: Yes (discharged 06/13/14 on antibiotics) Hx Esophageal Varices: No Hx Fatty Liver Disease: No Hx Gall Bladder Disease: No Hx Gastritis: Yes Hx Gastroesophageal Reflux: Yes Hx Hemorrhoids: Yes Hx Ileostomy: No Hx Irritable Bowel: No Hx Liver Failure: No Hx Nausea: No Hx Pancreatitis: No HX Swallowing Problems: No Hx Ulcer: No Hx Vomiting: No - GENITOURINARY/GYNECOLOGICAL Hx Genitourinary Disorders: No - PSYCHIATRIC Hx Psychophysiologic Disorder: No Hx Substance Use: No - SURGICAL HISTORY Hx Surgeries: Yes Hx Eye Surgery: Yes (CATARACTS SX) Other/Comment: Colonoscopy/Endoscopy By ,left cataract surgery - ANESTHESIA Hx Anesthesia: Yes Hx Anesthesia Reactions: No Hx Malignant Hyperthermia: No Meds Home Medications: Home Medication List Medication Instructions Recorded Confirmed Type oxyCODONE/Acetaminophen [Percocet 1 ea PO Q6 PRN #28 tab 01/30/17 Rx 5/325 mg Tab] Allergies/Adverse Reactions: Allergies Allergy/AdvReac Type Severity Reaction Status Date / Time No Known Allergies Allergy Verified 01/26/17 18:44 - Medications Medications: Current Medications Insulin Aspart (Novolog) 0 unit SC ACHS [facility] PRN Reason: Protocol Last Admin: 01/29/17 21:08 Dose: Not Given Montelukast Sodium (Singulair) 10 mg PO HS [facility] Last Admin: 01/29/17 21:09 Dose: 10 mg Pantoprazole Sodium (Protonix Ec Tab) 40 mg PO DAILY [facility] Rosuvastatin Calcium (Crestor) 5 mg PO HS [facility] Last Admin: 01/29/17 21:09 Dose: 5 mg Physical Exam - Constitutional Appears: Well, No Acute Distress - Respiratory Exam Respiratory Exam: NORMAL BREATHING PATTERN - Cardiovascular Exam Additional comments: RUE: +radial pulse - Extremities Exam Additional comments: Left shoulder: no discoloration noted skin intact noted swelling TTP to lateral shoulder and over biceps tendon. No TTP AC joint. Mild upper trap spasm fflex to degrees, with pain, abd to 90, int rot to ASIS full ROM elbow - Expanded Upper Extremities Exam Left Shoulder exam: swelling, tenderness Elbow exam: full ROM, normal inspection Forearm Wrist exam: normal inspection Neuro motor exam: finger 2-5 abduction intact, thumb abduction, thumb IP flexion intact, thumb opposition intact, wrist extension intact Neurosensory exam: 2-poit discrimination, median nerve intact, radial nerve intact, ulnar nerve intact Vascular exam: radial pulse - Neurological Exam Neurological exam: Alert, Oriented x3 - Psychiatric Exam Psychiatric exam: Normal Affect, Normal Mood - Skin Skin Exam: Dry, Intact, Normal Color, Warm Results - Vital Signs Recent Vital Signs: Last Vital Signs Temp 97.6 F 01/29/17 23:10 Pulse 64 01/29/17 23:10 Resp 20 01/29/17 23:10 BP 157/87 H 01/29/17 23:10 Pulse Ox 96 01/29/17 23:10 - Labs Result Diagrams: 01/30/17 06:12 01/30/17 06:09 Labs: Laboratory Results - last 24 hr 01/29/17 01/29/17 01/29/17 12:36 16:24 16:49 WBC 4.7 L RBC 4.32 L Hgb 10.1 L Hct 32.2 L MCV 74.6 L MCH 23.5 L MCHC 31.5 L RDW 15.4 H Plt Count 155 MPV 9.7 Neut % (Auto) Lymph % (Auto) [place] % (Auto) Eos % (Auto) Baso % (Auto) Neut # Lymph # [place] # Eos # Baso # Sodium Potassium Chloride Carbon Dioxide Anion Gap BUN Creatinine Est GFR ( Amer) Est GFR (Non-Af Amer) POC Glucose (mg/dL) 93 143 H Random Glucose Calcium Phosphorus Magnesium Total Bilirubin AST ALT Alkaline Phosphatase Total Protein Albumin Globulin Albumin/Globulin Ratio 01/29/17 01/30/17 01/30/17 21:05 06:09 06:12 WBC 4.4 L RBC 4.25 L Hgb 9.9 L Hct 31.4 L MCV 73.8 L MCH 23.3 L MCHC 31.5 L RDW 15.6 H Plt Count 150 MPV 9.3 Neut % (Auto) 63.4 Lymph % (Auto) 16.5 L [place] % (Auto) 14.8 H Eos % (Auto) 4.1 H Baso % (Auto) 1.2 Neut # 2.8 Lymph # 0.7 L [place] # 0.7 Eos # 0.2 Baso # 0.1 Sodium 139 Potassium 3.6 Chloride 103 Carbon Dioxide 32 H Anion Gap 8 L BUN 7 L Creatinine 0.5 L Est GFR ( Amer) > 60 Est GFR (Non-Af Amer) > 60 POC Glucose (mg/dL) 151 H Random Glucose 100 Calcium 8.1 L Phosphorus 2.9 Magnesium 1.8 Total Bilirubin 0.4 AST 29 ALT 41 Alkaline Phosphatase 44 Total Protein 5.6 L Albumin 3.1 L Globulin 2.5 Albumin/Globulin Ratio 1.2 01/30/17 06:12 WBC RBC Hgb Hct MCV MCH MCHC RDW Plt Count MPV Neut % (Auto) Lymph % (Auto) [place] % (Auto) Eos % (Auto) Baso % (Auto) Neut # Lymph # [place] # Eos # Baso # Sodium Potassium Chloride Carbon Dioxide Anion Gap BUN Creatinine Est GFR ( Amer) Est GFR (Non-Af Amer) POC Glucose (mg/dL) 98 Random Glucose Calcium Phosphorus Magnesium Total Bilirubin AST ALT Alkaline Phosphatase Total Protein Albumin Globulin Albumin/Globulin Ratio - Impressions Impression: Patient Name / ID : JONNY MAC / [id number] Exam Date : 01/29/2017 11:40:39 ( Approved ) Study Comment : Sex / Age : M / [id number] Creator : sue landry Dictator : Nato Van MD Mussel Farmer : Wire Photo Operator News : Nato Van MD Approver2 : Report Date : 01/29/2017 12:25:25 My Comment : MRI left shoulder History: Shoulder pain. Comparison: None available. Technique: Multi-echo multiplanar sequences were performed through the left shoulder without the use of intravenous contrast. Findings: Complete rupture of the distal supraspinatus tendon with tendon retraction measuring approximately 1.9 centimeters. No significant muscle atrophy. Partial articular surface tearing with a moderate distal tendinopathy of the infraspinatus tendon. No tendon retraction or muscle atrophy. Teres minor tendon is preserved. Complete full-thickness tear of the superior distal tendon strand fibers of the subscapularis with tendon retraction measuring approximately 1.3 centimeters. A few of the inferior tendon strand fibers are preserved. Fatty atrophy of the superior muscle belly. Proximal portion of the long head of the biceps tendon appears prominently thickened and frayed with increased signal seen within the proximal attachment suggestive for partial tearing with a severe tendinopathy. Fluid and edema distends the biceps tendon sheath. Evaluation of the glenoid labrum demonstrates fraying with increased signal seen within the posterior labrum extending from superior to inferior as well as at the level of the anterior inferior labrum and superior labrum suggestive for tearing of the labrum. Moderate grade strain at the humeral attachment of the inferior glenohumeral ligament. Large glenohumeral joint effusion with associated synovial debris and hypertrophy. Fluid within the subacromial and subdeltoid bursa. Severe acromioclavicular joint space degenerative changes with joint space narrowing, subchondral edema, and bony hypertrophy. 5 millimeter subchondral cyst formation noted within greater tuberosity of the proximal humerus. Impression: 1. Complete rupture of the distal supraspinatus tendon with tendon retraction measuring approximately 1.9 centimeters. No significant muscle atrophy. 2. Partial articular surface tearing with a moderate distal tendinopathy of the infraspinatus tendon. No tendon retraction or muscle atrophy. 3. Complete full-thickness tear of the superior distal tendon strand fibers of the subscapularis with tendon retraction measuring approximately 1.3 centimeters. A few of the inferior tendon strand fibers are preserved. Fatty atrophy of the superior muscle belly. 4. Proximal portion of the long head of the biceps tendon appears prominently thickened and frayed with increased signal seen within the proximal attachment suggestive for partial tearing with a severe tendinopathy. Fluid and edema distends the biceps tendon sheath. 5. Evaluation of the glenoid labrum demonstrates fraying with increased signal seen within the posterior labrum extending from superior to inferior as well as at the level of the anterior inferior labrum and superior labrum suggestive for tearing of the labrum. 6. Moderate grade strain at the humeral attachment of the inferior glenohumeral ligament. 7. Large glenohumeral joint effusion with associated synovial debris and hypertrophy. Fluid within the subacromial and subdeltoid bursa. 8. Severe acromioclavicular joint space degenerative changes with joint space narrowing, subchondral edema, and bony hypertrophy. 9. 5 millimeter subchondral cyst formation noted within greater tuberosity of the proximal humerus. Assessment & Plan (1) Traumatic tear of left rotator cuff Assessment and Plan: patient with fall 5 days ago, possibly acute tear on chronic (patient with large joint effusion from trauma, but also AC joint arthrosis and subcondral cysts indicative of some chronic disease) Left shoulder MRI and xrays reviewed, agree with radiologist report sling/rest at this time pain medication/lidoderm/ice will plan for PT, possible injection as outpatient Advised patient if he fails conservative mgmt, he may be indicated for arthroscopic surgery in the future Patient admitted for GI bleed, no acute intervention for shoulder injury indicated while inpatient at this time patient to call for appointment in [address] Jansen office (consultation changed) D/w Dr. Jansen, agrees with above Advised patient to continue AROM of fingers/wrist/elbow Status: Acute (2) Arthrosis of left acromioclavicular joint Assessment and Plan: see above Status: Chronic (3) Biceps tendinitis of left shoulder Assessment and Plan: see above Status: Acute (4) Glenoid labral tear Assessment and Plan: see above Status: Acute (5) Synovitis of left shoulder Assessment and Plan: see above Status: Acute
[2017-01-30] MEDS ORDERED: Pantoprazole 40 mg EC Tab PO SCH (10:00)
--- NOTE | 2017-01-30 11:39 | CP.PCM.PN ---
Subjective - Date & Time of Evaluation Date of Evaluation: 01/30/17 Time of Evaluation: 11:37 - Subjective Subjective: No further bleeding, stools black Discharge planned for today Objective - Vital Signs/Intake and Output Vital Signs (last 24 hours): Temp Pulse Resp BP Pulse Ox 97.6 F 66 20 146/80 95 01/30/17 08:38 01/30/17 08:38 01/30/17 08:38 01/30/17 08:38 01/30/17 08:38 Intake and Output: 01/30/17 01/30/17 06:59 18:59 Intake Total 500 Output Total 2000 Balance -1500 - Medications Medications: Current Medications Insulin Aspart (Novolog) 0 unit SC ACHS [facility] PRN Reason: Protocol Last Admin: 01/30/17 08:30 Dose: Not Given Montelukast Sodium (Singulair) 10 mg PO [facility] Last Admin: 01/29/17 21:09 Dose: 10 mg Pantoprazole Sodium (Protonix Ec Tab) 40 mg PO DAILY [facility] Last Admin: 01/30/17 10:26 Dose: 40 mg Rosuvastatin Calcium (Crestor) 5 mg PO [facility] Last Admin: 01/29/17 21:09 Dose: 5 mg - Labs Labs: 01/30/17 06:12 01/30/17 06:09 PT 12.8 SECONDS (9.7-12.2) H 01/26/17 19:28 INR 1.1 01/26/17 19:28 APTT 25 SECONDS (21-34) 01/26/17 19:28 - Constitutional Appears: No Acute Distress - Head Exam Head Exam: ATRAUMATIC, NORMOCEPHALIC - Eye Exam Eye Exam: EOMI, PERRL - Respiratory Exam Respiratory Exam: NORMAL BREATHING PATTERN - Cardiovascular Exam Cardiovascular Exam: REGULAR RHYTHM - GI/Abdominal Exam GI & Abdominal Exam: Soft, Normal Bowel Sounds. absent: Distended, Guarding, Tenderness, Mass Assessment and Plan (1) Hematochezia Assessment & Plan: Will continue to monitor. Consider outpatient Pillcam if patient agreeable May need colectomy if bleeding recurs and can't be localized Status: Resolved (2) Diverticulosis large intestine w/o perforation or abscess w/o bleeding Status: Chronic (3) Anemia due to blood loss, acute Assessment & Plan: Out patient follow up with me in 2-3 weeks Status: Acute
[2017-01-30] MEDS ORDERED: Oxycodone/Acetaminophen 5/325 mg Tab PO ONE (11:55)
--- NOTE | 2017-01-30 12:42 | CP.PCM.DIS ---
Provider - Provider Date of Admission: 01/26/17 20:34 Attending physician: Sarbjit Calhoun MD Time Spent in preparation of Discharge (in minutes): 35 Diagnosis - Discharge Diagnosis (1) Bright red blood per rectum Status: Acute (2) Gastrointestinal hemorrhage Status: Acute (3) Traumatic tear of left rotator cuff Status: Acute (4) Diverticulosis large intestine w/o perforation or abscess w/o bleeding Status: Chronic Hospital Course - Lab Results Lab Results: Most Recent Lab Values WBC 4.4 K/uL (4.8-10.8) L 01/30/17 06:12 RBC 4.25 Mil/uL (4.40-5.90) L 01/30/17 06:12 Hgb 9.9 g/dL (12.0-18.0) L 01/30/17 06:12 Hct 31.4 % (35.0-51.0) L 01/30/17 06:12 MCV 73.8 fL (80.0-94.0) L 01/30/17 06:12 MCH 23.3 pg (27.0-31.0) L 01/30/17 06:12 MCHC 31.5 g/dL (33.0-37.0) L 01/30/17 06:12 RDW 15.6 % (11.5-14.5) H 01/30/17 06:12 Plt Count 150 K/uL (130-400) 01/30/17 06:12 MPV 9.3 fL (7.2-11.7) 01/30/17 06:12 Neut % (Auto) 63.4 % (50.0-75.0) 01/30/17 06:12 Lymph % (Auto) 16.5 % (20.0-40.0) L 01/30/17 06:12 [place] % (Auto) 14.8 % (0.0-10.0) H 01/30/17 06:12 Eos % (Auto) 4.1 % (0.0-4.0) H 01/30/17 06:12 Baso % (Auto) 1.2 % (0.0-2.0) 01/30/17 06:12 Neut # 2.8 K/uL (1.8-7.0) 01/30/17 06:12 Lymph # 0.7 K/uL (1.0-4.3) L 01/30/17 06:12 [place] # 0.7 K/uL (0.0-0.8) 01/30/17 06:12 Eos # 0.2 K/uL (0.0-0.7) 01/30/17 06:12 Baso # 0.1 K/uL (0.0-0.2) 01/30/17 06:12 Neutrophils % (Manual) 89 % (50-75) H 01/26/17 19:28 Lymphocytes % (Manual) 7 % (20-40) L 01/26/17 19:28 Monocytes % (Manual) 4 % (0-10) 01/26/17 19:28 Platelet Estimate Normal (NORMAL) 01/26/17 19:28 Large Platelets Present 01/26/17 19:28 Hypochromasia (manual) Slight 01/26/17 19:28 Poikilocytosis (manual Slight 01/26/17 19:28 Anisocytosis (manual) Slight 01/26/17 19:28 Microcytosis (manual) Slight 01/26/17 19:28 Tear Drop Cells Slight 01/26/17 19:28 Ovalocytes Slight 01/26/17 19:28 Retic Count 0.7 % (0.5-1.5) 01/27/17 05:57 PT 12.8 SECONDS (9.7-12.2) H 01/26/17 19:28 INR 1.1 01/26/17 19:28 APTT 25 SECONDS (21-34) 01/26/17 19:28 Sodium 139 mmol/L (132-148) 01/30/17 06:09 Potassium 3.6 mmol/L (3.6-5.2) 01/30/17 06:09 Chloride 103 mmol/L (98-107) 01/30/17 06:09 Carbon Dioxide 32 mmol/L (22-30) H 01/30/17 06:09 Anion Gap 8 (10-20) L 01/30/17 06:09 BUN 7 mg/dL (9-20) L 01/30/17 06:09 Creatinine 0.5 MG/DL (0.8-1.5) L 01/30/17 06:09 Est GFR ( Amer) > 60 01/30/17 06:09 Est GFR (Non-Af Amer) > 60 01/30/17 06:09 POC Glucose (mg/dL) 100 mg/dL (65-110) 01/30/17 11:24 Random Glucose 100 mg/dL (75-110) 01/30/17 06:09 Hemoglobin A1c 5.5 % (4.2-6.5) 01/27/17 05:57 Calcium 8.1 mg/dl (8.6-10.4) L 01/30/17 06:09 Phosphorus 2.9 mg/dL (2.5-4.5) 01/30/17 06:09 Magnesium 1.8 mg/dL (1.6-2.3) 01/30/17 06:09 Iron 34 ug/dL (49-181) L 01/28/17 06:28 TIBC 253 ug/dL (250-450) 01/28/17 06:28 % Saturation 14 (20-55) L 01/28/17 06:28 Total Bilirubin 0.4 mg/dL (0.2-1.3) 01/30/17 06:09 AST 29 U/L (17-59) 01/30/17 06:09 ALT 41 U/L (21-72) 01/30/17 06:09 Alkaline Phosphatase 44 U/L (38-126) 01/30/17 06:09 Total Protein 5.6 g/dL (6.3-8.3) L 01/30/17 06:09 Albumin 3.1 g/dL (3.5-5.0) L 01/30/17 06:09 Globulin 2.5 gm/dL (2.2-3.9) 01/30/17 06:09 Albumin/Globulin Ratio 1.2 (1.0-2.1) 01/30/17 06:09 Triglycerides 41 mg/dL (0-149) 01/27/17 05:57 Cholesterol 118 mg/dL (0-199) 01/27/17 05:57 LDL Cholesterol Direct 63 mg/dL (0-129) 01/27/17 05:57 HDL Cholesterol 43 mg/dL (30-70) 01/27/17 05:57 Vitamin B12 526 pg/mL (239-931) 01/27/17 05:57 Folate > 20.0 ng/mL 01/27/17 05:57 Urine Color Yellow (YELLOW) 01/28/17 07:40 Urine Clarity Clear (Clear) 01/28/17 07:40 Urine pH 5.0 (5.0-8.0) 01/28/17 07:40 Ur Specific [place] 1.009 (1.003-1.030) 01/28/17 07:40 Urine Protein Negative mg/dL (NEGATIVE) 01/28/17 07:40 Urine Glucose (UA) Normal mg/dL (Normal) 01/28/17 07:40 Urine Ketones Negative mg/dL (NEGATIVE) 01/28/17 07:40 Urine Blood Negative (NEGATIVE) 01/28/17 07:40 Urine Nitrate Negative (NEGATIVE) 01/28/17 07:40 Urine Bilirubin Negative (NEGATIVE) 01/28/17 07:40 Urine Urobilinogen Normal mg/dL (0.2-1.0) 01/28/17 07:40 Ur Leukocyte Esterase Neg [place]/uL (Negative) 01/28/17 07:40 Urine WBC (Auto) < 1 /hpf (0-5) 01/28/17 07:40 Urine RBC (Auto) < 1 /hpf (0-3) 01/28/17 07:40 Stool Occult Blood Positive (NEGATIVE) H 01/26/17 19:15 Blood Type A POSITIVE 01/26/17 19:28 Antibody Screen Negative 01/26/17 19:28 - Hospital Course Hospital Course: 66yo Male with PMHx significant for diverticulitis, internal-hemorrhoids, and HTN - presents c/o a single episode of bloody diarrhea and a near syncopal episode earlier on day of admission. Pt. fell and hit his head and shoulder after standing up from the toilet. A contusion was on his right posterior side of his scalp. CT head w/o contrast was negative for acute injury. CT Abd/Pelvis w/o contrast - 1. Bladder findings which could be due to mild cystitis. Otherwise within normal limits in appearance. 2. Extensive colonic diverticulosis without definite diverticulitis. After admission the patient had a sudden drop in Hgb from 11.0 to 8.7 and was transfused 2u of blood. GI was consulted and performed an EGD and Colonocopy which showed no evidence of active or recent bleeding. MRI of his shoulder demonstrated complete rupture of the distal supraspinatus tendon with tendon retraction, partial tear of infraspinatous tendon, complete tear of the superior distal tendon. Pt. was hemodynamically stable and discharged home with instructions to follow up with his GI doc for further evaluation and to follow up with the orthopaedic group in regards to his shoulder. This is a brief account of his stay. For a more details please review his chart. - Date & Time of H&P Date of H&P: 01/30/17 Time of H&P: 06:45 Discharge Exam - Head Exam Head Exam: ATRAUMATIC, NORMOCEPHALIC - Eye Exam Eye Exam: EOMI - ENT Exam ENT Exam: Mucous Membranes Moist - Neck Exam Neck exam: Full Rom - Respiratory Exam Respiratory Exam: Clear to PA & Lateral, NORMAL BREATHING PATTERN, UNREMARKABLE - Cardiovascular Exam Cardiovascular Exam: REGULAR RHYTHM, RRR, +S1. absent: JVD - GI/Abdominal Exam GI & Abdominal Exam: Normal Bowel Sounds, Soft, Tenderness, Unremarkable - Extremities Exam Additional comments: decreased ROM of left shoulder in int/ext rot and abduction/adduction - Back Exam Back exam: absent: rash noted - Neurological Exam Neurological exam: Alert, Oriented x3 - Psychiatric Exam Psychiatric exam: Normal Affect, Normal Mood - Skin Skin Exam: Dry, Intact, Normal Color, Warm Discharge Plan - Discharge Medications Prescriptions: oxyCODONE/Acetaminophen [Percocet 5/325 mg Tab] 1 ea PO Q6 PRN #28 tab PRN Reason: Pain, Severe (8-10) - Follow Up Plan Condition: GUARDED Disposition: HOME/ ROUTINE Instructions: Oxycodone/Acetaminophen (By mouth), Hiatal Hernia (DC), Gastritis (DC), Gastrointestinal Bleeding (DC), Colonoscopy (DC), Diverticulosis (DC), Rotator Cuff Injury (DC), Heart Healthy Diet (DC), Syncope (DC), Upper Endoscopy (DC) Additional Instructions: Pt. is medically stable for discharge. Please restart your home medications. Please follow up with your Psychotherapist, Dr. Valle within 2 weeks. Please follow up at Dr. Jansen's office at [phone] within 2 weeks to discuss your shoulder pain. Please follow up with your Primary care doctor, Dr. Pepe within 1 week. Thank you for allowing us to take part in your care. Referrals: Ashu Jansen MD [Staff Provider] - Nathen Pepe MD [Staff Provider] - Tom Valle MD [Staff Provider] -
[2017-01-30 15:35] VITALS: BP 129/76; PULSE 63; TEMP 97.4; O2SAT 98
--- NOTE | 2017-02-04 07:49 | CARD ---
APPROVED REPORT EKG Measurement Heart [id number] <Conclusion> Normal sinus rhythm with sinus arrhythmia Normal ECG
== END 2017-01-30 15:50 | disposition home or self-care (01) | DRG 378 ==
LOC: C.ER 18:22 → C.9E 20:34 → C.6T 01-27 16:49
PROVIDERS: ADMIT Family Medicine; ATTEND Family Medicine
PROC: 30233N1 Transfusion of Nonautologous Red Blood Cells into Peripheral Vein, Percutaneous Approach (ICD-10-PCS; 2017-01-27)
PROC: 0DJD8ZZ Inspection of Lower Intestinal Tract, Via Natural or Artificial Opening Endoscopic (ICD-10-PCS; principal; 2017-01-28 09:05)
PROC: 0DB68ZX Excision of Stomach, Via Natural or Artificial Opening Endoscopic, Diagnostic (ICD-10-PCS; 2017-01-28 09:05)
DX: K92.1 Melena (principal); D62 Acute posthemorrhagic anemia; N30.90 Cystitis, unspecified without hematuria; J45.909 Unspecified asthma, uncomplicated; S01.01XA Laceration without foreign body of scalp, initial encounter; R55 Syncope and collapse; E78.5 Hyperlipidemia, unspecified; K29.50 Unspecified chronic gastritis without bleeding; K57.90 Diverticulosis of intestine, part unspecified, without perforation or abscess without bleeding; K44.9 Diaphragmatic hernia without obstruction or gangrene; M17.0 Bilateral primary osteoarthritis of knee; K64.1 Second degree hemorrhoids; E11.9 Type 2 diabetes mellitus without complications; S46.012A Strain of muscle(s) and tendon(s) of the rotator cuff of left shoulder, initial encounter; M19.112 Post-traumatic osteoarthritis, left shoulder; M75.22 Bicipital tendinitis, left shoulder; S43.492A Other sprain of left shoulder joint, initial encounter; M65.812 Other synovitis and tenosynovitis, left shoulder; W19.XXXA Unspecified fall, initial encounter; Y92.9 Unspecified place or not applicable; Z86.010 Personal history of colon polyps; Z98.42 Cataract extraction status, left eye